=== PATIENT | female | born 1935 | race Caucasian/White ===

== ENCOUNTER 2016-10-26 07:17 | Inpatient (IN) | payer MEDICARE, OTHER ==
[2016-10-26] MEDS ORDERED: Sodium Chloride 0.9% 1,000 ML IV ONE (07:23)
[2016-10-26] MEDS ORDERED: Morphine 2 MG/ML Syringe IVPUSH ONE ×2 (07:23→09:41)
--- NOTE | 2016-10-26 07:39 | EDM.PDOC ---
ED HPI GENERAL MEDICAL PROBLEM - General Chief Complaint: Back Pain or Injury Stated Complaint: AMBULANCE Time Seen by Provider: 10/26/16 07:19 Source of Information: Reports: Patient - History of Present Illness INITIAL COMMENTS - FREE TEXT/NARRATIVE: HISTORY AND PHYSICAL: History of present illness: This is a 80-year-old female presenting to the emergency department via EMS after having a fall at home. She was found after having a fall out of her bed. She currently complains of lower back bilateral hip pain. Denies any loss of consciousness. He denies hitting her head. She denies any chest pain or shortness of breath. Denies any numbness or tingling. Has no other complaints. Review of systems: As per history of present illness and below otherwise all systems reviewed and negative. Past medical history: As per history of present illness and as reviewed below otherwise noncontributory. Surgical history: As per history of present illness and as reviewed below otherwise noncontributory. Social history: No reported history of drug or alcohol abuse. Family history: As per history of present illness and as reviewed below otherwise noncontributory. Physical exam: HEENT: Atraumatic, normocephalic, pupils reactive, negative for conjunctival pallor or scleral icterus, mucous membranes moist, throat clear, neck supple, nontender, trachea midline. Lungs: Clear to auscultation, breath sounds equal bilaterally, chest nontender. Heart: S1S2, regular, negative for clicks, rubs, or JVD. Abdomen: Soft, nondistended, nontender. Negative for masses or hepatosplenomegaly. Negative for costovertebral tenderness. Pelvis: Stable nontender. Genitourinary: Deferred. Rectal: Deferred. Extremities: Atraumatic, negative for cords or calf pain. Neurovascular unremarkable. Neuro: Awake, alert, oriented. Cranial nerves II through XII unremarkable. Cerebellum unremarkable. Motor and sensory unremarkable throughout. Exam nonfocal. Diagnostics: CBC CMP PT/INR TROPONIN CHEST XRAY Pelvic X-ray Lumber spine X-ray EKG UA CT pelvis w/o contrast Therapeutics: 2mg IV morphine Impression: Ambulatory dysfunction Plan: Admit to observation. Accepting physician Dr. Urena. Left Hip Pain Score (Numeric/FACES): 8 Lower Back Pain Score (Numeric/FACES): 8 - Related Data Allergies Allergy/AdvReac Type Severity Reaction Status Date / Time codeine Allergy Intermediate Rash Verified 03/25/16 06:33 celecoxib [From Celebrex] Allergy Rash Verified 03/25/16 06:33 propoxyphene [From Darvon] Allergy Rash Verified 10/26/16 07:46 Home Meds: Home Meds SitaGLIPtin [Januvia] 100 mg PO DAILY 11/24/15 [History] amLODIPine [Norvasc] 5 mg PO BEDTIME 11/24/15 [History] Ascorbic Acid [Vitamin C] 500 mg PO DAILY 03/25/16 [History] Calcium Carbonate/Vitamin D3 [Calcium 600 + Vit D Tablet] 1 tab PO DAILY [History] Metoprolol Succinate [Toprol XL] 25 mg PO DAILY 03/25/16 [History] Rosuvastatin [Crestor] 10 mg PO BEDTIME 03/25/16 [History] Fluticasone Propionate [Flonase Allergy Relief] 2 sprays NASBOTH DAILY 10/26/16 [History] Propylene Glycol/Peg 400 [Systane 0.3-0.4% Eye Drops] 1 drop EYEBOTH TID [History] Past Medical History Cardiovascular History: Reports: Hypertension Respiratory History: Reports: None Gastrointestinal History: Reports: None Neurological History: Reports: None Psychiatric History: Reports: None Endocrine/Metabolic History: Reports: Diabetes, Type II Hematologic History: Reports: None Other Oncologic History: as stated by the pt she has ca of the " pelvis, groin and chest" and she was ca free for 3 years now and that she is following up with her oncology dr. Dermatologic History: Reports: None - Infectious Disease History Infectious Disease History: Reports: None - Past Surgical History Musculoskeletal Surgical History: Reports: Knee Replacement Social & Family History - Tobacco Use Smoking Status *Q: Never Smoker Second Hand Smoke Exposure: No - Recreational Drug Use Recreational Drug Use: No ED ROS GENERAL - Review of Systems Review Of Systems: See Below (see dictation) ED EXAM,LOWER BACK PAIN/INJURY - Physical Exam Exam: See Below (See dictation) Course - Vital Signs Last Recorded V/S: Last Vital Signs Temp 37.2 C 10/27/16 04:00 Pulse 71 10/27/16 04:00 Resp 18 10/27/16 04:00 BP 127/58 L 10/27/16 04:00 Pulse Ox 94 L 10/27/16 04:00 - Orders/Labs/Meds Orders: Medication Orders Acetaminophen (Tylenol) 650 mg PO Q4H PRN PRN Reason: Pain (Mild 1-3)/fever Amlodipine Besylate (Norvasc) 5 mg PO BEDTIME [facility] Last Admin: 10/26/16 21:41 Dose: 5 mg Artificial Tears (Refresh Plus 0.5%) 0 each EYEBOTH TID [facility] Last Admin: 10/27/16 06:15 Dose: 1 drop Admin: 10/26/16 22:08 Dose: 1 drop Ascorbic Acid (Vitamin C) 500 mg PO DAILY [facility] Calcium Carbonate/Glycine (Tums) 500 mg PO DAILY [facility] Cholecalciferol (Vitamin D3) 400 units PO DAILY [facility] Enoxaparin Sodium (Lovenox) 30 mg SUBCUT DAILY [facility] Last Admin: 10/26/16 12:50 Dose: 30 mg Fluticasone Propionate (Flonase) 0 gm NASBOTH DAILY [facility] Insulin Aspart (Novolog) 0 unit SUBCUT TIDAC [facility] PRN Reason: Protocol Last Admin: 10/26/16 16:49 Dose: 1 unit Metoprolol Succinate (Toprol Xl) 25 mg PO DAILY [facility] Ondansetron HCl (Zofran Odt) 4 mg PO Q4H PRN PRN Reason: nausea, able to take PO Last Admin: 10/27/16 06:17 Dose: 4 mg Admin: 10/26/16 16:49 Dose: 4 mg Oxycodone HCl (Oxycodone) 10 mg PO Q4H PRN PRN Reason: Pain (moderate 4-6) Last Admin: 10/26/16 21:40 Dose: 10 mg Admin: 10/26/16 14:41 Dose: 10 mg Rosuvastatin Calcium (Crestor) 10 mg PO DAILY [facility] Sitagliptin Phosphate (Januvia) 100 mg PO DAILY [facility] Trimethoprim/Sulfamethoxazole (Septra Ds) 1 tab PO BID [facility] Last Admin: 10/26/16 21:41 Dose: 1 tab Admin: 10/26/16 12:50 Dose: 1 tab Labs: Laboratory Tests 10/26/16 10/26/16 10/26/16 Range/Units 07:39 07:39 07:39 WBC 8.98 (4.0-11.0) K/uL RBC 3.73 L (4.30-5.90) M/uL Hgb 12.1 (12.0-16.0) g/dL Hct 34.7 L (36.0-46.0) % MCV 93.0 (80.0-98.0) fL MCH 32.4 H (27.0-32.0) pg MCHC 34.9 (31.0-37.0) g/dL RDW Std Deviation 46.3 (28.0-62.0) fl RDW Coeff of Shell 14 (11.0-15.0) % Plt Count 120 L (150-400) K/uL MPV 10.60 (7.40-12.00) fL Neut % (Auto) 86.7 H (48.0-80.0) % Lymph % (Auto) 4.7 L (16.0-40.0) % [place] % (Auto) 8.5 (0.0-15.0) % Eos % (Auto) 0.0 (0.0-7.0) % Baso % (Auto) 0.1 (0.0-1.5) % Neut # (Auto) 7.8 H (1.4-5.7) K/uL Lymph # (Auto) 0.4 L (0.6-2.4) K/uL [place] # (Auto) 0.8 (0.0-0.8) K/uL Eos # (Auto) 0.0 (0.0-0.7) K/uL Baso # (Auto) 0.0 (0.0-0.1) K/uL Nucleated RBC % 0.0 /100WBC Nucleated RBCs # 0 K/uL INR (0.86-1.11) Sodium 140 (136-146) mmol/L Potassium 3.7 (3.5-5.1) mmol/L Chloride 104 (98-110) mmol/L Carbon Dioxide 23 (21-31) mmol/L BUN 25 H (6.0-23.0) mg/dL Creatinine 1.5 (0.6-1.5) mg/dL Est Cr Clr Drug Dosing 23.92 mL/min Estimated GFR (MDRD) 33.2 ml/min Glucose 200 H (60-110) mg/dL Calcium 10.0 (8.8-10.8) mg/dL Total Bilirubin 1.7 H (0.1-1.5) mg/dL AST 86 H (5-40) IU/L ALT 27 (8-54) IU/L Alkaline Phosphatase 98 (40-150) Troponin I < 0.10 (0.0-0.29) NG/ML Total Protein 7.4 (6.0-8.0) g/dL Albumin 4.0 (3.4-4.8) g/dL Globulin 3.4 (2.0-3.5) g/dL Albumin/Globulin Ratio 1.2 L (1.3-2.8) Urine Color Urine Appearance Urine pH (5.0-8.0) Ur Specific [place] (1.001-1.035) Urine Protein (NEGATIVE) mg/dL Urine Glucose (UA) (NEGATIVE) mg/dL Urine Ketones (NEGATIVE) mg/dL Urine Occult Blood (NEGATIVE) Urine Nitrite (NEGATIVE) Urine Bilirubin (NEGATIVE) Urine Urobilinogen (<2.0) EU/dL Ur Leukocyte Esterase (NEGATIVE) Urine RBC (0-2/HPF) Urine WBC (0-5/HPF) Ur Epithelial Cells (NONE-FEW) Urine Bacteria (NEGATIVE) 10/26/16 10/26/16 Range/Units 08:57 09:35 WBC (4.0-11.0) K/uL RBC (4.30-5.90) M/uL Hgb (12.0-16.0) g/dL Hct (36.0-46.0) % MCV (80.0-98.0) fL MCH (27.0-32.0) pg MCHC (31.0-37.0) g/dL RDW Std Deviation (28.0-62.0) fl RDW Coeff of Shell (11.0-15.0) % Plt Count (150-400) K/uL MPV (7.40-12.00) fL Neut % (Auto) (48.0-80.0) % Lymph % (Auto) (16.0-40.0) % [place] % (Auto) (0.0-15.0) % Eos % (Auto) (0.0-7.0) % Baso % (Auto) (0.0-1.5) % Neut # (Auto) (1.4-5.7) K/uL Lymph # (Auto) (0.6-2.4) K/uL [place] # (Auto) (0.0-0.8) K/uL Eos # (Auto) (0.0-0.7) K/uL Baso # (Auto) (0.0-0.1) K/uL Nucleated RBC % /100WBC Nucleated RBCs # K/uL INR 1.10 (0.86-1.11) Sodium (136-146) mmol/L Potassium (3.5-5.1) mmol/L Chloride (98-110) mmol/L Carbon Dioxide (21-31) mmol/L BUN (6.0-23.0) mg/dL Creatinine (0.6-1.5) mg/dL Est Cr Clr Drug Dosing mL/min Estimated GFR (MDRD) ml/min Glucose (60-110) mg/dL Calcium (8.8-10.8) mg/dL Total Bilirubin (0.1-1.5) mg/dL AST (5-40) IU/L ALT (8-54) IU/L Alkaline Phosphatase (40-150) Troponin I (0.0-0.29) NG/ML Total Protein (6.0-8.0) g/dL Albumin (3.4-4.8) g/dL Globulin (2.0-3.5) g/dL Albumin/Globulin Ratio (1.3-2.8) Urine Color YELLOW Urine Appearance CLEAR Urine pH 5.0 (5.0-8.0) Ur Specific [place] 1.025 (1.001-1.035) Urine Protein 100 (NEGATIVE) mg/dL Urine Glucose (UA) NEGATIVE (NEGATIVE) mg/dL Urine Ketones 15 H (NEGATIVE) mg/dL Urine Occult Blood LARGE H (NEGATIVE) Urine Nitrite NEGATIVE (NEGATIVE) Urine Bilirubin NEGATIVE (NEGATIVE) Urine Urobilinogen 1.0 (<2.0) EU/dL Ur Leukocyte Esterase LARGE (NEGATIVE) Urine RBC 2-3 (0-2/HPF) Urine WBC 45-50 (0-5/HPF) Ur Epithelial Cells MODERATE (NONE-FEW) Urine Bacteria 3+ H (NEGATIVE) Meds: Medications Generic Name Dose Route Start Last Admin Trade Name Freq PRN Reason Stop Dose Admin Acetaminophen 650 mg 10/26/16 12:18 Tylenol PO Q4H PRN Pain (Mild 1-3)/fever Amlodipine Besylate 5 mg 10/26/16 21:00 10/26/16 21:41 Norvasc PO 5 mg BEDTIME [facility] Administration Artificial Tears 0 each 10/26/16 22:00 10/27/16 06:15 Refresh Plus 0.5% EYEBOTH 1 drop TID [facility] Administration Ascorbic Acid 500 mg 10/27/16 09:00 Vitamin C PO DAILY [facility] Calcium Carbonate/Glycine 500 mg 10/27/16 09:00 Tums PO DAILY [facility] Cholecalciferol 400 units 10/27/16 09:00 Vitamin D3 PO DAILY [facility] Enoxaparin Sodium 30 mg 10/26/16 12:30 10/26/16 12:50 Lovenox SUBCUT 30 mg DAILY [facility] Administration Fluticasone Propionate 0 gm 10/27/16 09:00 Flonase NASBOTH DAILY [facility] Insulin Aspart 0 unit 10/26/16 17:00 10/26/16 16:49 Novolog SUBCUT 1 unit TIDAC [facility] Administration Protocol Metoprolol Succinate 25 mg 10/27/16 09:00 Toprol Xl PO DAILY [facility] Ondansetron HCl 4 mg 10/26/16 12:18 10/27/16 06:17 Zofran Odt PO 4 mg Q4H PRN Administration nausea, able to take PO Oxycodone HCl 10 mg 10/26/16 12:18 10/26/16 21:40 Oxycodone PO 10 mg Q4H PRN Administration Pain (moderate 4-6) Rosuvastatin Calcium 10 mg 10/27/16 09:00 Crestor PO DAILY [facility] Sitagliptin Phosphate 100 mg 10/27/16 09:00 Januvia PO DAILY [facility] Trimethoprim/Sulfamethoxazole 1 tab 10/26/16 12:30 10/26/16 21:41 Septra Ds PO 1 tab BID [facility] Administration Discontinued Medications Generic Name Dose Route Start Last Admin Trade Name Freq PRN Reason Stop Dose Admin Sodium Chloride 1,000 mls @ 999 mls/hr 10/26/16 07:23 10/26/16 09:04 Normal Saline IV 10/26/16 08:23 200 mls/hr STAT ONE Infusion Morphine Sulfate 2 mg 10/26/16 07:23 10/26/16 07:42 Morphine IVPUSH 10/26/16 07:24 2 mg ONETIME ONE Administration Morphine Sulfate 2 mg 10/26/16 09:41 10/26/16 09:47 Morphine IVPUSH 10/26/16 09:42 2 mg ONETIME ONE Administration Systane 0.3-0.4% Eye 1 each 10/26/16 22:00 Drops EYEBOTH TID [facility] Departure - Departure Time of Disposition: 11:59 Disposition: Refer to Observation Condition: Fair Clinical Impression: Ambulatory dysfunction - Discharge Information
--- NOTE | 2016-10-26 11:46 | CT ---
EXAMINATION: CT pelvis without contrast HISTORY: Fall COMPARISON: 05/11/2016 TECHNIQUE: Axial CT images obtained through the pelvis without contrast. Coronal and sagittal recons tructions obtained. FINDINGS: The osseous structures overall appear mildly osteopenic. No fracture or acute osseous abno rmality is noted. The SI joints are symmetric. The sacrum appears grossly intact. The iliopectineal lines are preserved. Joint spaces appear preserved. Mild to moderate osteophyte formation noted with in the hips. Hemangiomas are noted within the lower thoracic spine. Moderate facet hypertrophy also present at L4-L5 and L5-S1. Diverticulosis without evidence of diverticulitis. Otherwise the visualized intrapelvic structures a ppear grossly unremarkable. IMPRESSION: 1. Degenerative changes without acute findings. 2. Diverticulosis.
[2016-10-26] MEDS ORDERED: Enoxaparin 30 MG/0.3 ML Syringe SUBCUT SCH (12:30)
[2016-10-26] MEDS: Sulfamethoxazole/Trimethoprim 800-160 MG Tab PO SCH ×2 (12:50→21:41)
[2016-10-26] MEDS: oxyCODONE 5 MG Tab PO PRN ×2 (14:41→21:40)
--- NOTE | 2016-10-26 15:32 | PCM.HP ---
H&P History of Present Illness - General Date of Service: 10/26/16 Admit Problem/Dx: Admission Diagnosis/Problem Admission Diagnosis/Problem Ambulatory dysfunction Source of Information: Patient History Limitations: Reports: No Limitations - History of Present Illness Initial Comments - Free Text/Narative: 80-year-old female with a medical history of hypertension, type 2 diabetes that also has a pacemaker placed that is being admitted secondary to low back and left hip pain after suffering a fall this morning. Patient woke up early this morning with low back pain and was sitting on the edge of the bed and states that she slipped off the edge of the bed and fell onto her butt. Patient did not fall onto her hip and states that she only fell onto her butt. She did not lose consciousness and did not have any headache or dizziness prior to the fall. She states that with the fall she did bump her head against a bedside table but does not currently endorse any headache or dizziness. The fall was unwitnessed. She was able to get up and ambulate to the living room to get her walker which she usually only uses during the night when she needs to get up and go to the bathroom. Otherwise, she ambulates independently without assistive devices. Patient has never had any surgeries to her low back or hips. She rates her left hip and low back pain as 8 out of 10 at its worse. She does have increased weakness on the left lower side secondary to pain but denies any numbness or tingling. Patient does not have a history of seizures. She has no history of osteoporosis or osteopenia. Patient denies any chest pain, palpitations, shortness of breath, wheezing, cough, abdominal pain, nausea, vomiting, constipation, diarrhea, headache, dizziness, vision problems, tinnitus , fever. Patient does currently live on her own. ER course: Pelvic x-ray shows degenerative changes within the joint spaces bilaterally at the hips. No definite displaced fracture. Follow-up pelvic CT shows no fracture and only degenerative changes. Patient does have diverticulosis. Chest x-ray done in the emergency room shows no acute processes. Lumbar spine x-ray shows no fracture and normal anatomical alignment. There are bone spurs at disc spaces and hypertrophic changes of the lumbar facets. No significant listhesis present. CBC showed a normal white blood cell count with a platelet count of 120 ,000. BUN was mildly elevated at 25 with a normal creatinine. Urinalysis was negative for nitrites but did show +3 bacteria. Patient denies any discomfort with urination. Patient did receive morphine 2 while in the emergency room and also normal saline bolus. Left Hip Pain Score (Numeric/FACES): 9 Lower Back Pain Score (Numeric/FACES): 6 - Related Data Allergies/Adverse Reactions: Allergies Allergy/AdvReac Type Severity Reaction Status Date / Time codeine Allergy Intermediate Rash Verified 03/25/16 06:33 celecoxib [From Celebrex] Allergy Rash Verified 03/25/16 06:33 propoxyphene [From Darvon] Allergy Rash Verified 10/26/16 07:46 Home Medications: Home Meds SitaGLIPtin [Januvia] 100 mg PO DAILY 11/24/15 [History] amLODIPine [Norvasc] 5 mg PO BEDTIME 11/24/15 [History] Ascorbic Acid [Vitamin C] 500 mg PO DAILY 03/25/16 [History] Calcium Carbonate/Vitamin D3 [Calcium 600 + Vit D Tablet] 1 tab PO DAILY [History] Metoprolol Succinate [Toprol XL] 25 mg PO DAILY 03/25/16 [History] Rosuvastatin [Crestor] 10 mg PO BEDTIME 03/25/16 [History] Fluticasone Propionate [Flonase Allergy Relief] 2 sprays NASBOTH DAILY 10/26/16 [History] Propylene Glycol/Peg 400 [Systane 0.3-0.4% Eye Drops] 1 drop EYEBOTH TID [History] Past Medical History Cardiovascular History: Reports: Hypertension Respiratory History: Reports: None Other Respiratory History: Hx of pneumonia Gastrointestinal History: Reports: None Neurological History: Reports: None Psychiatric History: Reports: None Endocrine/Metabolic History: Reports: Diabetes, Type II Hematologic History: Reports: None Other Oncologic History: as stated by the pt she has ca of the " pelvis, groin and chest" and she was ca free for 3 years now and that she is following up with her oncology dr. Dermatologic History: Reports: None - Infectious Disease History Infectious Disease History: Reports: None - Past Surgical History HEENT Surgical History: Reports: Eye Surgery Other HEENT Surgeries/Procedures: Wears glasses Cardiovascular Surgical History: Reports: Pacer Female Surgical History: Reports: Hysterectomy Musculoskeletal Surgical History: Reports: Knee Replacement Social & Family History - Family History Family Medical History: Noncontributory Cardiac: Reports: Hypertension, [place] GI: Reports: Other (See Below) Other GI Family History: Intestinal CA Endocrine/Metabolic: Reports: Diabetes, type II - Tobacco Use Smoking Status *Q: Never Smoker Second Hand Smoke Exposure: No - Caffeine Use Caffeine Use: Reports: None - Recreational Drug Use Recreational Drug Use: No H&P Review of Systems - Review of Systems: Review Of Systems: See Below General: Reports: No Symptoms HEENT: Reports: No Symptoms Pulmonary: Reports: No Symptoms Cardiovascular: Reports: No Symptoms Gastrointestinal: Reports: No Symptoms Genitourinary: Reports: No Symptoms Musculoskeletal: Reports: Other (Left hip pain with low back pain.) Skin: Reports: No Symptoms Psychiatric: Reports: No Symptoms Neurological: Reports: No Symptoms Hematologic/Lymphatic: Reports: No Symptoms Immunologic: Reports: No Symptoms Exam - Exam Exam: See Below - Vital Signs Vital Signs: Last Vital Signs Temp 98.5 F 10/26/16 12:07 Pulse 76 10/26/16 12:07 Resp 18 10/26/16 12:07 BP 141/65 H 10/26/16 12:07 Pulse Ox 94 L 10/26/16 12:07 Weight: 179 lb 7.3 oz - Exam Quality Assessment: DVT Prophylaxis (SCDs, Lovenox.) General: Alert, Oriented, Cooperative HEENT: Conjunctiva Clear, EOMI, Hearing Intact, Mucosa Moist & [place] Neck: Supple, Trachea Midline, 2 Lungs: Clear to Auscultation, Normal Respiratory Effort Cardiovascular: Regular Rate, Regular Rhythm GI/Abdominal Exam: Normal Bowel Sounds, Soft, Non-Tender, No Organomegaly, No Distention, No Abnormal Bruit, No Mass Extremities: Other (Pain with palpation over the left greater trochanter of the left hip. Patient also has pain with palpation of the low back. Strength is 4 out of 5 in the left lower extremity secondary to pain. No bruising, erythema or redness noted to the left hip. There is no shortening of the left lower extremity and the foot is not turned outward. No calf tenderness with palpation bilaterally.) Peripheral Pulses: 2+: Radial (L), Radial (R), Posterior Tibial (L), Posterior Tibial (R) Skin: Warm, Dry, Intact Neuro Extensive - Mental Status: Alert, Oriented x3, Normal Mood/Affect, Normal Cognition Neuro Extensive - Motor, Sensory, Reflexes: CN II-XII Intact, Other (Sensation remains intact light touch in the upper and lower extremities bilaterally.) Psychiatric: Alert, Normal Affect, Normal Mood - Patient Data Result Diagrams: 10/26/16 07:39 10/26/16 07:39 *Q Meaningful Use (ADM) - VTE *Q VTE Criteria *Q: - Stroke *Q Stroke Criteria *Q: - AMI *Q AMI Criteria *Q: - Problem List (1) Left hip pain SNOMED Code(s): 59038501 ICD Code: M25.552 - PAIN IN LEFT HIP Status: Acute Current Visit: Yes (2) UTI (urinary tract infection) SNOMED Code(s): 45125971 ICD Code: N39.0 - URINARY TRACT INFECTION, SITE NOT SPECIFIED Status: Acute Current Visit: Yes Problem List Initiated/Reviewed/Updated: Yes Orders Last 24hrs: Active Orders 24 hr Category Date Time Status Antiembolic Devices [RC] PER UNIT ROUTINE Care 10/26/16 12:20 Active Height and Weight [RC] DAILY Care 10/26/16 12:18 Active Intake and Output [RC] Q12H Care 10/26/16 12:19 Active Notify Provider Vital Signs [RC] ASDIRECTED Care 10/26/16 12:19 Active Oxygen Therapy [RC] PRN Care 10/26/16 12:19 Active Pulse Oximetry [RC] PRN Care 10/26/16 12:19 Active Up With Assistance [RC] ASDIRECTED Care 10/26/16 12:18 Active VTE/DVT Education [RC] PER UNIT ROUTINE Care 10/26/16 12:19 Active Vital Signs [RC] Q4H Care 10/26/16 12:19 Active PT Evaluation and Treatment [CONS] Routine Cons 10/26/16 12:18 Active Heart Healthy Diet [DIET] Diet 10/26/16 Dinner Active Acetaminophen [Tylenol] Med 10/26/16 12:18 Active 650 mg PO Q4H PRN Ascorbic Acid [Vitamin C] Med 10/27/16 09:00 Active 500 mg PO DAILY Calcium Carbonate [Tums] Med 10/27/16 09:00 Active 500 mg PO DAILY Cholecalciferol (Vitamin D3) [Vitamin D3] Med 10/27/16 09:00 Active 400 units PO DAILY Enoxaparin [Lovenox] Med 10/26/16 12:30 Active 30 mg SUBCUT DAILY Fluticasone Propionate [Flonase] Med 10/27/16 09:00 Active 0 gm NASBOTH DAILY Insulin Aspart [NovoLOG] Med 10/26/16 17:00 Active See Protocol SUBCUT TIDAC Metoprolol Succinate [Toprol XL] Med 10/27/16 09:00 Active 25 mg PO DAILY Ondansetron [Zofran ODT] Med 10/26/16 12:18 Active 4 mg PO Q4H PRN Patient's Own Medication [Ptom] Med 10/26/16 22:00 Active 1 each EYEBOTH TID Rosuvastatin [Crestor] Med 10/27/16 09:00 Active 10 mg PO DAILY SitaGLIPtin [Januvia] Med 10/27/16 09:00 Active 100 mg PO DAILY Sulfamethoxazole/Trimethoprim [Septra DS] Med 10/26/16 12:30 Active 1 tab PO BID amLODIPine [Norvasc] Med 10/26/16 21:00 Active 5 mg PO BEDTIME oxyCODONE Med 10/26/16 12:18 Active 10 mg PO Q4H PRN Sequential Compression Device [OM.PC] Per Unit Routine Oth 10/26/16 12:19 Ordered Resuscitation Status Routine Resus Stat 10/26/16 12:18 Ordered Medication Orders Acetaminophen (Tylenol) 650 mg PO Q4H PRN PRN Reason: Pain (Mild 1-3)/fever Amlodipine Besylate (Norvasc) 5 mg PO BEDTIME [facility] Ascorbic Acid (Vitamin C) 500 mg PO DAILY [facility] Calcium Carbonate/Glycine (Tums) 500 mg PO DAILY [facility] Cholecalciferol (Vitamin D3) 400 units PO DAILY [facility] Enoxaparin Sodium (Lovenox) 30 mg SUBCUT DAILY [facility] Last Admin: 10/26/16 12:50 Dose: 30 mg Fluticasone Propionate (Flonase) 0 gm NASBOTH DAILY [facility] Insulin Aspart (Novolog) 0 unit SUBCUT TIDAC [facility] PRN Reason: Protocol Metoprolol Succinate (Toprol Xl) 25 mg PO DAILY [facility] Ondansetron HCl (Zofran Odt) 4 mg PO Q4H PRN PRN Reason: nausea, able to take PO Oxycodone HCl (Oxycodone) 10 mg PO Q4H PRN PRN Reason: Pain (moderate 4-6) Last Admin: 10/26/16 14:41 Dose: 10 mg Systane 0.3-0.4% Eye (Drops) 1 each EYEBOTH TID [facility] Rosuvastatin Calcium (Crestor) 10 mg PO DAILY [facility] Sitagliptin Phosphate (Januvia) 100 mg PO DAILY [facility] Trimethoprim/Sulfamethoxazole (Septra Ds) 1 tab PO BID DARR[facility] Last Admin: 10/26/16 12:50 Dose: 1 tab Assessment/Plan Comment:: 80-year-old female being admitted with low back and left hip pain after suffering an unwitnessed fall. Patient also has a UTI. #1. Low back/left hip pain: -Pelvic x-rays and lumbar x-rays were unremarkable for fracture. Follow-up pelvic CT showed no evidence of fracture and only diverticulosis. -PT has been ordered. Oral Pain medications are available as needed for pain relief. #2. UTI: -urinalysis shows +3 bacteria and negative nitrates. patient does not have any symptoms with urination. -Patient placed on oral Bactrim double strength twice a day. #3. Type 2 diabetes: -patient will continue with home medication of Januvia. We will check her blood sugars throughout the day. -Patient placed on sliding scale NovoLog. All home medications have been restarted. DVT prophylaxis: SCDs, Lovenox. Discharge: 1-2 days pending improvement
[2016-10-26] MEDS: Insulin Aspart 100 Units/ML 3 ML Pen SUBCUT SCH (16:49)
[2016-10-26] MEDS: Ondansetron 4 MG Tab.DIS PO PRN (16:49)
--- NOTE | 2016-10-26 17:17 | CR ---
EXAM DATE: 10/26/16 PATIENT'S AGE: 80 Patient: ABDIRAHMAN BARTLETT Facility: [place], [place] Site . Site : 1935 Study: XRay Pelvis [id number]/21/2017 8:27:11 AM Ordering Physician: Jose David Couch Final Report: INDICATION: Fall. Technique: Pelvis and right hip. Impression.: An overlying backboard is present. There is asymmetric linear density projecting over the intertrochanteric region of the right femur. The medial margin of this extends beyond the cortex also this could represent a superimposition. The position and alignment appear normal. No definite displaced fracture. Both hip joints show degeneration with joint space narrowing and marginal osteophytic spurring. Small surgical clips are present at the pelvis. Suggest repeat exam when the patient is off of the backboard with additional views of the right hip. Dictated by Jeffrey Carmichael MD @ Oct 26 2016 8:27AM (Electronic Signature) Report Signed by Proxy. MONY
--- NOTE | 2016-10-26 17:18 | CR ---
EXAM DATE: 10/26/16 PATIENT'S AGE: 80 Patient: ABDIRAHMAN BARTLETT Facility: [place], [place] Site . Site : 1935 Study: XRay Chest [id number]/21/2017 8:27:40 AM Ordering Physician: Jose David Couch Final Report: INDICATION: Fall. Technique: Portable chest. March 2016 comparison. Impression: Right Port-A-Cath with central line in the superior vena cava. Left-sided pacemaker generator. Right atrial and ventricular pacemaker leads are present. The lungs are clear. No pneumothorax. The tracheal air column is slightly deviated to the right at the thoracic inlet. This is unchanged. Correlate with physical exam. Benign causes could include enlargement of the left thyroid lobe but correlate with clinical findings. No effusions or pneumothorax. Dictated by Jeffrey Carmichael MD @ Oct 26 2016 8:30AM (Electronic Signature) Report Signed by Proxy. MONY
--- NOTE | 2016-10-26 17:19 | CR ---
EXAM DATE: 10/26/16 PATIENT'S AGE: 80 Patient: ABDIRAHMAN BARTLETT Facility: [place], [place] Site . Site : 1935 Study: XRay Spine Lumbar [id number]/21/2017 8:28:47 AM Ordering Physician: Jose David Couch Final Report: Lumbar spine 3 VIEWS INDICATION: Injury. IMPRESSION: No visualized fracture. Alignments anatomic. Overlying backboard is present. The lumbar spine shows multilevel annular spurring at the disc spaces and hypertrophic changes in the lumbar facet joints. No significant listhesis. Dictated by Jeffrey Carmichael MD @ Oct 26 2016 8:33AM (Electronic Signature) Report Signed by Proxy. MONY
[2016-10-26] MEDS: amLODIPine 5 MG Tab PO SCH (21:41)
[2016-10-26] MEDS ORDERED: Systane 0.3-0.4% Eye Drops EYEBOTH SCH (22:00)
[2016-10-26] MEDS: Carboxymethylcellulose Sodium 0.5% Ophth Soln 0.4 ML UD Box of 30 EYEBOTH SCH (22:08)
[2016-10-27] MEDS: Carboxymethylcellulose Sodium 0.5% Ophth Soln 0.4 ML UD Box of 30 EYEBOTH SCH ×3 (06:15→21:16)
[2016-10-27] MEDS: Ondansetron 4 MG Tab.DIS PO PRN ×2 (06:17→21:50)
[2016-10-27] MEDS: Insulin Aspart 100 Units/ML 3 ML Pen SUBCUT SCH ×3 (07:38→19:05)
[2016-10-27] MEDS: Calcium Carbonate 500 MG Tab.Chew PO SCH (09:03)
[2016-10-27] MEDS: Cholecalciferol (Vitamin D3) 400 Unit Tab PO SCH (09:03)
[2016-10-27] MEDS: Sulfamethoxazole/Trimethoprim 800-160 MG Tab PO SCH (09:04)
[2016-10-27] MEDS: Fluticasone Propionate Nasal Spray 16 GM Bottle NASBOTH SCH (09:04)
[2016-10-27] MEDS: Metoprolol Succinate 25 MG Tab.ER PO SCH (09:04)
[2016-10-27] MEDS: Ascorbic Acid 500 MG Tab PO SCH (09:04)
[2016-10-27] MEDS: Rosuvastatin 10 MG Tab PO SCH (09:04)
--- NOTE | 2016-10-27 09:09 | PCM.PN ---
- General Info Date of Service: 10/27/16 Admission Dx/Problem (Free Text): Admission Diagnosis/Problem Admission Diagnosis/Problem Ambulatory dysfunction Subjective Update: Feeling kind of blah today, feels slightly nauseated and dizzy. She is mostly dizzy when she stands up. Denies chest pain or SOB. No Palpitations. Pain to L hip improved, she is able to ambulate with assistance and a walker. Functional Status: Reports: Pain Controlled, Tolerating Diet, Ambulating, Urinating - Review of Systems General: Reports: Malaise. Denies: Fever HEENT: Reports: No Symptoms. Denies: Eye Pain, Headaches, Sore Throat, Rhinitis Pulmonary: Reports: No Symptoms. Denies: Shortness of Breath, Cough, Sputum Cardiovascular: Reports: Lightheadedness. Denies: Chest Pain Gastrointestinal: Reports: Abdominal Pain, Nausea, Vomiting Genitourinary: Reports: No Symptoms. Denies: Dysuria, Frequency, Burning Musculoskeletal: Reports: Joint Pain (L hip, but improved with medication) Neurological: Reports: Dizziness Psychiatric: Reports: No Symptoms - Patient Data Vitals - Most Recent: Last Vital Signs Temp 98.3 F 10/27/16 08:00 Pulse 75 10/27/16 08:00 Resp 20 10/27/16 08:00 BP 123/56 L 10/27/16 08:00 Pulse Ox 93 L 10/27/16 08:00 Weight - Most Recent: 81.4 kg I&O - Last 24 Hours: Intake & Output 10/26/16 10/27/16 10/27/16 22:59 06:59 14:59 Intake Total 1300 150 Output Total 1 400 Balance 1299 -250 Lab Results Last 24 Hours: Laboratory Results - last 24 hr 10/26/16 10/26/16 10/27/16 Range/Units 16:17 21:04 04:50 WBC 6.92 (4.0-11.0) K/uL RBC 3.03 L (4.30-5.90) M/uL Hgb 9.6 L (12.0-16.0) g/dL Hct 28.5 L (36.0-46.0) % MCV 94.1 (80.0-98.0) fL MCH 31.7 (27.0-32.0) pg MCHC 33.7 (31.0-37.0) g/dL RDW Std Deviation 47.4 (28.0-62.0) fl RDW Coeff of Shell 14 (11.0-15.0) % Plt Count 118 L (150-400) K/uL MPV 10.40 (7.40-12.00) fL Neut % (Auto) 83.9 H (48.0-80.0) % Lymph % (Auto) 6.8 L (16.0-40.0) % [place] % (Auto) 9.1 (0.0-15.0) % Eos % (Auto) 0.1 (0.0-7.0) % Baso % (Auto) 0.1 (0.0-1.5) % Neut # (Auto) 5.8 H (1.4-5.7) K/uL Lymph # (Auto) 0.5 L (0.6-2.4) K/uL [place] # (Auto) 0.6 (0.0-0.8) K/uL Eos # (Auto) 0.0 (0.0-0.7) K/uL Baso # (Auto) 0.0 (0.0-0.1) K/uL Nucleated RBC % 0.0 /100WBC Nucleated RBCs # 0 K/uL Absolute Retic (20-80) K/uL Percent Retic (0.5-1.5) % Immature Retic Fraction % Sodium (136-146) mmol/L Potassium (3.5-5.1) mmol/L Chloride (98-110) mmol/L Carbon Dioxide (21-31) mmol/L BUN (6.0-23.0) mg/dL Creatinine (0.6-1.5) mg/dL Est Cr Clr Drug Dosing mL/min Estimated GFR (MDRD) ml/min Glucose (60-110) mg/dL POC Glucose 158 H 162 H (60-110) mg/dL Calcium (8.8-10.8) mg/dL Iron (50-170) ug/dL TIBC (273-456) ug/dL % Saturation (20-55) % Transferrin (200-400) ug/dL 10/27/16 10/27/16 10/27/16 Range/Units 04:50 04:55 04:55 WBC (4.0-11.0) K/uL RBC 3.01 L (4.30-5.90) M/uL Hgb (12.0-16.0) g/dL Hct (36.0-46.0) % MCV (80.0-98.0) fL MCH (27.0-32.0) pg MCHC (31.0-37.0) g/dL RDW Std Deviation (28.0-62.0) fl RDW Coeff of Shell (11.0-15.0) % Plt Count (150-400) K/uL MPV (7.40-12.00) fL Neut % (Auto) (48.0-80.0) % Lymph % (Auto) (16.0-40.0) % [place] % (Auto) (0.0-15.0) % Eos % (Auto) (0.0-7.0) % Baso % (Auto) (0.0-1.5) % Neut # (Auto) (1.4-5.7) K/uL Lymph # (Auto) (0.6-2.4) K/uL [place] # (Auto) (0.0-0.8) K/uL Eos # (Auto) (0.0-0.7) K/uL Baso # (Auto) (0.0-0.1) K/uL Nucleated RBC % /100WBC Nucleated RBCs # K/uL Absolute Retic 57.80 (20-80) K/uL Percent Retic 1.9 H (0.5-1.5) % Immature Retic Fraction 10 % Sodium 138 (136-146) mmol/L Potassium 3.6 (3.5-5.1) mmol/L Chloride 105 (98-110) mmol/L Carbon Dioxide 23 (21-31) mmol/L BUN 25 H (6.0-23.0) mg/dL Creatinine 1.2 (0.6-1.5) mg/dL Est Cr Clr Drug Dosing 31.21 mL/min Estimated GFR (MDRD) 43.0 ml/min Glucose 128 H (60-110) mg/dL POC Glucose (60-110) mg/dL Calcium 8.8 (8.8-10.8) mg/dL Iron 19 L (50-170) ug/dL TIBC 197 L (273-456) ug/dL % Saturation 9.64 L (20-55) % Transferrin 138 L (200-400) ug/dL Med Orders - Current: Current Medications Acetaminophen (Tylenol) 650 mg PO Q4H PRN PRN Reason: Pain (Mild 1-3)/fever Amlodipine Besylate (Norvasc) 5 mg PO BEDTIME [facility] Last Admin: 10/26/16 21:41 Dose: 5 mg Artificial Tears (Refresh Plus 0.5%) 0 each EYEBOTH TID [facility] Last Admin: 10/27/16 06:15 Dose: 1 drop Ascorbic Acid (Vitamin C) 500 mg PO DAILY [facility] Calcium Carbonate/Glycine (Tums) 500 mg PO DAILY [facility] Cholecalciferol (Vitamin D3) 400 units PO DAILY [facility] Fluticasone Propionate (Flonase) 0 gm NASBOTH DAILY [facility] Insulin Aspart (Novolog) 0 unit SUBCUT TIDAC [facility] PRN Reason: Protocol Last Admin: 10/27/16 07:38 Dose: Not Given Metoprolol Succinate (Toprol Xl) 25 mg PO DAILY [facility] Ondansetron HCl (Zofran Odt) 4 mg PO Q4H PRN PRN Reason: nausea, able to take PO Last Admin: 10/27/16 06:17 Dose: 4 mg Oxycodone HCl (Oxycodone) 5 mg PO Q4H PRN PRN Reason: Pain (moderate 4-6) Rosuvastatin Calcium (Crestor) 10 mg PO DAILY [facility] Sitagliptin Phosphate (Januvia) 100 mg PO DAILY [facility] Trimethoprim/Sulfamethoxazole (Septra Ds) 1 tab PO BID [facility] Last Admin: 10/26/16 21:41 Dose: 1 tab Discontinued Medications Enoxaparin Sodium (Lovenox) 30 mg SUBCUT DAILY [facility] Last Admin: 10/26/16 12:50 Dose: 30 mg Sodium Chloride (Normal Saline) 1,000 mls @ 999 mls/hr IV STAT ONE Stop: 10/26/16 08:23 Last Infusion: 10/26/16 09:04 Dose: 200 mls/hr Morphine Sulfate (Morphine) 2 mg IVPUSH ONETIME ONE Stop: 10/26/16 07:24 Last Admin: 10/26/16 07:42 Dose: 2 mg Morphine Sulfate (Morphine) 2 mg IVPUSH ONETIME ONE Stop: 10/26/16 09:42 Last Admin: 10/26/16 09:47 Dose: 2 mg Oxycodone HCl (Oxycodone) 10 mg PO Q4H PRN PRN Reason: Pain (moderate 4-6) Last Admin: 10/26/16 21:40 Dose: 10 mg Systane 0.3-0.4% Eye (Drops) 1 each EYEBOTH TID DARRICK - Exam General: Alert, Oriented, Cooperative, No Acute Distress HEENT: Pupils Equal Neck: Supple, No JVD Lungs: Clear to Auscultation, Normal Respiratory Effort Cardiovascular: Regular Rate, Regular Rhythm GI/Abdominal Exam: Normal Bowel Sounds, Soft, No Organomegaly, No Distention, No Mass, Guarding (LLQ), Tender (LLQ) Extremities: Normal Inspection, Normal Range of Motion, Non-Tender, No Pedal Edema, Normal Capillary Refill Skin: Other (pale in appearance.) Neurological: No New Focal Deficit Psy/Mental Status: Alert, Normal Affect, Normal Mood - Problem List & Annotations (1) Abdominal pain SNOMED Code(s): 57493163 Code(s): R10.9 - UNSPECIFIED ABDOMINAL PAIN Status: Acute Current Visit: Yes (2) Ambulatory dysfunction SNOMED Code(s): 810523017 Code(s): R26.2 - DIFFICULTY IN WALKING, NOT ELSEWHERE CLASSIFIED Status: Acute Current Visit: Yes (3) Left hip pain SNOMED Code(s): 63749780 Code(s): M25.552 - PAIN IN LEFT HIP Status: Acute Current Visit: Yes (4) UTI (urinary tract infection) SNOMED Code(s): 47442779 Code(s): N39.0 - URINARY TRACT INFECTION, SITE NOT SPECIFIED Status: Acute Current Visit: Yes (5) DM type 2 (diabetes mellitus, type 2) SNOMED Code(s): 08866584 Code(s): E11.9 - TYPE 2 DIABETES MELLITUS WITHOUT COMPLICATIONS Status: Chronic Current Visit: Yes Qualifiers: Diabetes mellitus complication status: without complication Diabetes mellitus care home insulin use: without care home use Qualified Code(s): E11.9 - Type 2 diabetes mellitus without complications (6) HTN (hypertension) SNOMED Code(s): 27950980 Code(s): I10 - ESSENTIAL (PRIMARY) HYPERTENSION Status: Acute Current Visit: Yes Qualifiers: Hypertension type: essential hypertension Qualified Code(s): I10 - Essential (primary) hypertension (7) Anemia SNOMED Code(s): 320734918 Code(s): D64.9 - ANEMIA, UNSPECIFIED Status: Acute Current Visit: Yes Qualifiers: Anemia type: iron deficiency Iron deficiency anemia type: other iron deficiency Qualified Code(s): D50.8 - Other iron deficiency anemias - Problem List Review Problem List Initiated/Reviewed/Updated: Yes - My Orders Last 24 Hours: My Active Orders 10/27/16 04:55 FERRITIN [REF] Routine FOLIC ACID [CHEM] Routine VITAMIN B12 [CHEM] Routine 10/27/16 08:06 CULTURE URINE [RM] Routine 10/27/16 08:27 Fecal Occult Blood Collection [RC] ASDIRECTED OCCULT BLOOD DIAGNOSTIC [OP] Routine 10/27/16 08:56 Orthostatic Vital Signs [RC] Q12HR 10/27/16 08:57 oxyCODONE 5 mg PO Q4H PRN - Plan Plan:: 80-year-old female being admitted with low back and left hip pain after suffering an unwitnessed fall. Patient also has a UTI. 1. Low back/left hip pain: Continue with PT. Oral Pain medications are available as needed for pain relief. Pain has improved, she is able to ambulate with walker. 2. UTI: UC pending. Continues to have no symptoms. 3. Type 2 diabetes: Continue with home medication of Januvia. Check her blood sugars TIDAC. Continue SSI, NovoLog. BS controlled. 4. Anemia: Hgb dropped to 9.6 today, Plt 118,000. She denies any bleeding, does have some LLQ tenderness/pain with palpation. Will obtain Abd/pelvis CT, iron studies and obtain hemoccult. C/O dizziness with getting up, obtain Orthostatic VS. 5. HTN: Continue Norvasc, Metoprolol. 6. Abdominal pain: Will obtain Abdominal/pelvis CT. nauseated and just does not feel well. Pelvic CT yesterday noted diverticulosis, question possible diverticulitis now due to new LLQ tenderness. Will stop Bactrim and start Flagyl and Cipro IV. Change to CL diet and monitor. 7. Hypoxia: Does not complain of this, but appears dyspneic with speech and Hypoxic on RA. Will obtain PA/LAT CXR, BNP, and ECHO. DVT prophylaxis: SCDs, DC Lovenox due to drop in hgb and work up for anemia Discharge: 1-2 days pending improvement Discussed patient in detail with Dr. Noble and Dr. Urena, all in agreement with current treatment plan.
[2016-10-27] MEDS ORDERED: Ciprofloxacin in D5W 400 MG in Premix Bag 1 BAG IV SCH ×2 (11:00)
--- NOTE | 2016-10-27 11:22 | CT ---
CT of the abdomen and pelvis without contrast. HISTORY: Left lower quadrant pain TECHNIQUE: Axial CT images were obtained of the abdomen and pelvis without contrast. Coronal and sag ittal reconstructions obtained. Comparison: 05/11/2016. FINDINGS: There is atelectasis within the lung bases. The liver, spleen, and pancreas appear unremarkable for noncontrast examination. The gallbladder chang ears normal. There is mild nodular thickening of the adrenal glands bilaterally, grossly unchanged. There is no bulky retroperitoneal lymphadenopathy. No abdominal ascites. There are no calcifications noted within the kidneys or along the courses of the ureters bilaterally . There is mild to moderate left perirenal stranding. The large and small bowel are normal in caliber without evidence of obstruction. The appendix appear s normal. Diverticulosis without evidence of diverticulitis. There is no bulky pelvic lymphadenopath y. No free fluid. No free air. The urinary bladder appears normal. The visualized osseous structures appear osteopenic. Hemangiomas noted within the lower lumbar spine , unchanged. IMPRESSION: 1. Left perirenal stranding, this could represent a recently passed stone versus an underlying UTI. 2. Diverticulosis without evidence of diverticulitis.
[2016-10-27] MEDS ORDERED: metroNIDAZOLE/Normal Saline 500 MG in Premix Bag 1 BAG IV SCH (12:00)
--- NOTE | 2016-10-27 12:12 | PCM.SN ---
- Free Text/Narrative Note: Abd/pelvis noted perirenal stranding to L, likely cause of abdominal pain. No outward signs of passing a stone. Likely due to UTI. Will stop Cipro and Flagyl since she has not received these yet and place on Rocephin IV until sensitivities available from culture.
--- NOTE | 2016-10-27 12:34 | CR ---
EXAMINATION: Two-view chest (PA and Lateral views). HISTORY: Shortness of breath. FINDINGS: The trachea is midline. The cardiomediastinal silhouette is within normal limits. Mild left basilar atelectasis and/or infiltrate, trace pleural effusion is not excluded. Right-sided portacatheter is noted. Left-sided ICD also present. Osseous structures appear unremarkable. IMPRESSION: Mild left basilar atelectasis and/or infiltrate.
[2016-10-27] MEDS: cefTRIAXone 1 GM in Premix Bag 1 BAG IV SCH (13:12)
[2016-10-27] MEDS: Acetaminophen 325 MG Tab PO PRN ×2 (13:12→21:08)
[2016-10-27] MEDS ORDERED: Azithromycin 250 MG Tab PO ONE (17:00)
[2016-10-27] MEDS: amLODIPine 5 MG Tab PO SCH (21:08)
[2016-10-27] MEDS: oxyCODONE 5 MG Tab PO PRN (22:07)
[2016-10-28] MEDS: Carboxymethylcellulose Sodium 0.5% Ophth Soln 0.4 ML UD Box of 30 EYEBOTH SCH ×3 (06:17→21:13)
[2016-10-28] MEDS: Insulin Aspart 100 Units/ML 3 ML Pen SUBCUT SCH ×3 (06:36→16:45)
[2016-10-28] MEDS: Metoprolol Succinate 25 MG Tab.ER PO SCH (08:57)
[2016-10-28] MEDS: Cholecalciferol (Vitamin D3) 400 Unit Tab PO SCH (08:58)
[2016-10-28] MEDS: Ascorbic Acid 500 MG Tab PO SCH (08:58)
[2016-10-28] MEDS: Calcium Carbonate 500 MG Tab.Chew PO SCH (08:59)
[2016-10-28] MEDS: Rosuvastatin 10 MG Tab PO SCH (08:59)
[2016-10-28] MEDS: Fluticasone Propionate Nasal Spray 16 GM Bottle NASBOTH SCH (09:00)
[2016-10-28] MEDS ORDERED: Magnesium Hydroxide 400 MG/5 ML Susp 30 ML Cup PO ONE (09:18)
[2016-10-28] MEDS: Iron Polysaccharides Complex 150 MG Cap PO SCH (09:36)
--- NOTE | 2016-10-28 10:04 | PCM.PN ---
- General Info Date of Service: 10/28/16 Admission Dx/Problem (Free Text): Admission Diagnosis/Problem Admission Diagnosis/Problem UTI, CAP, fall Subjective Update: Sitting up in chair afte eating breakfast, appears very well this morning. She reports she is feeling much better today, some pain to L SI joint region, no bruising noted. Some pain to L hip when ambulating but this too has improved. No further abdominal pain, feeling bloated and constipated though. Denies nausea today. No chest pain or SOB, still requiring 1 L NC oxygen. Functional Status: Reports: Pain Controlled, Tolerating Diet, Ambulating, Urinating - Review of Systems General: Reports: No Symptoms. Denies: Fever HEENT: Reports: No Symptoms. Denies: Ear Pain, Headaches, Sore Throat, Visual Changes Pulmonary: Reports: No Symptoms. Denies: Shortness of Breath, Cough, Sputum Cardiovascular: Reports: No Symptoms. Denies: Chest Pain, Palpitations, Lightheadedness Gastrointestinal: Reports: Constipation. Denies: Abdominal Pain, Nausea, Vomiting Genitourinary: Reports: No Symptoms. Denies: Dysuria, Frequency, Burning Musculoskeletal: Reports: Joint Pain (L hip and L SI joint region) Skin: Reports: No Symptoms Neurological: Reports: No Symptoms Psychiatric: Reports: No Symptoms - Patient Data Vitals - Most Recent: Last Vital Signs Temp 97.6 F 10/28/16 08:00 Pulse 67 10/28/16 08:57 Resp 16 10/28/16 08:00 BP 114/53 L 10/28/16 08:57 Pulse Ox 95 10/28/16 08:00 Orthostatic Blood Pressure [ 129/60 Standing] Orthostatic Blood Pressure [ 115/57 Sitting] Orthostatic Blood Pressure [ 127/59 Supine] Weight - Most Recent: 81.4 kg I&O - Last 24 Hours: Intake & Output 10/27/16 10/28/16 10/28/16 22:59 06:59 14:59 Intake Total 500 368 Output Total 320 400 Balance 180 -32 Lab Results Last 24 Hours: Laboratory Results - last 24 hr 10/27/16 10/27/16 10/27/16 Range/Units 12:55 13:17 16:36 WBC (4.0-11.0) K/uL RBC (4.30-5.90) M/uL Hgb 10.3 L (12.0-16.0) g/dL Hct 29.8 L (36.0-46.0) % MCV (80.0-98.0) fL MCH (27.0-32.0) pg MCHC (31.0-37.0) g/dL RDW Std Deviation (28.0-62.0) fl RDW Coeff of Hsell (11.0-15.0) % Plt Count (150-400) K/uL MPV (7.40-12.00) fL Neut % (Auto) (48.0-80.0) % Lymph % (Auto) (16.0-40.0) % [place] % (Auto) (0.0-15.0) % Eos % (Auto) (0.0-7.0) % Baso % (Auto) (0.0-1.5) % Neut # (Auto) (1.4-5.7) K/uL Lymph # (Auto) (0.6-2.4) K/uL [place] # (Auto) (0.0-0.8) K/uL Eos # (Auto) (0.0-0.7) K/uL Baso # (Auto) (0.0-0.1) K/uL Nucleated RBC % /100WBC Nucleated RBCs # K/uL Sodium (136-146) mmol/L Potassium (3.5-5.1) mmol/L Chloride (98-110) mmol/L Carbon Dioxide (21-31) mmol/L BUN (6.0-23.0) mg/dL Creatinine (0.6-1.5) mg/dL Est Cr Clr Drug Dosing mL/min Estimated GFR (MDRD) ml/min Glucose (60-110) mg/dL POC Glucose 124 H 157 H (60-110) mg/dL Calcium (8.8-10.8) mg/dL 10/28/16 10/28/16 Range/Units 05:03 05:03 WBC 5.96 (4.0-11.0) K/uL RBC 3.07 L (4.30-5.90) M/uL Hgb 9.6 L (12.0-16.0) g/dL Hct 28.7 L (36.0-46.0) % MCV 93.5 (80.0-98.0) fL MCH 31.3 (27.0-32.0) pg MCHC 33.4 (31.0-37.0) g/dL RDW Std Deviation 47.0 (28.0-62.0) fl RDW Coeff of Shell 14 (11.0-15.0) % Plt Count 119 L (150-400) K/uL MPV 10.70 (7.40-12.00) fL Neut % (Auto) 80.1 H (48.0-80.0) % Lymph % (Auto) 8.6 L (16.0-40.0) % [place] % (Auto) 10.6 (0.0-15.0) % Eos % (Auto) 0.5 (0.0-7.0) % Baso % (Auto) 0.2 (0.0-1.5) % Neut # (Auto) 4.8 (1.4-5.7) K/uL Lymph # (Auto) 0.5 L (0.6-2.4) K/uL [place] # (Auto) 0.6 (0.0-0.8) K/uL Eos # (Auto) 0.0 (0.0-0.7) K/uL Baso # (Auto) 0.0 (0.0-0.1) K/uL Nucleated RBC % 0.0 /100WBC Nucleated RBCs # 0 K/uL Sodium 140 (136-146) mmol/L Potassium 4.2 (3.5-5.1) mmol/L Chloride 106 (98-110) mmol/L Carbon Dioxide 25 (21-31) mmol/L BUN 26 H (6.0-23.0) mg/dL Creatinine 1.1 (0.6-1.5) mg/dL Est Cr Clr Drug Dosing 34.05 mL/min Estimated GFR (MDRD) 47.6 ml/min Glucose 113 H (60-110) mg/dL POC Glucose (60-110) mg/dL Calcium 9.1 (8.8-10.8) mg/dL Med Orders - Current: Current Medications Acetaminophen (Tylenol) 650 mg PO Q4H PRN PRN Reason: Pain (Mild 1-3)/fever Last Admin: 10/27/16 21:08 Dose: 650 mg Amlodipine Besylate (Norvasc) 5 mg PO BEDTIME [facility] Last Admin: 10/27/16 21:08 Dose: 5 mg Artificial Tears (Refresh Plus 0.5%) 0 each EYEBOTH TID [facility] Last Admin: 10/28/16 06:17 Dose: 1 drop Ascorbic Acid (Vitamin C) 500 mg PO DAILY [facility] Last Admin: 10/28/16 08:58 Dose: 500 mg Azithromycin (Zithromax) 250 mg PO Q24H [facility] Calcium Carbonate/Glycine (Tums) 500 mg PO DAILY [facility] Last Admin: 10/28/16 08:59 Dose: 500 mg Cholecalciferol (Vitamin D3) 400 units PO DAILY [facility] Last Admin: 10/28/16 08:58 Dose: 400 units Fluticasone Propionate (Flonase) 0 gm NASBOTH DAILY [facility] Last Admin: 10/28/16 09:00 Dose: 1 spray Ceftriaxone Sodium/Dextrose 1 (gm/ Premix) 50 mls @ 100 mls/hr IV Q24H [facility] Last Admin: 10/27/16 13:12 Dose: 100 mls/hr Insulin Aspart (Novolog) 0 unit SUBCUT TIDAC [facility] PRN Reason: Protocol Last Admin: 10/28/16 06:36 Dose: Not Given Metoprolol Succinate (Toprol Xl) 25 mg PO DAILY [facility] Last Admin: 10/28/16 08:57 Dose: 25 mg Ondansetron HCl (Zofran Odt) 4 mg PO Q4H PRN PRN Reason: nausea, able to take PO Last Admin: 10/27/16 21:50 Dose: 4 mg Oxycodone HCl (Oxycodone) 5 mg PO Q4H PRN PRN Reason: Pain (moderate 4-6) Last Admin: 10/27/16 22:07 Dose: 5 mg Polysaccharide Iron Complex (Ferrex 150) 150 mg PO DAILY [facility] Last Admin: 10/28/16 09:36 Dose: 150 mg Rosuvastatin Calcium (Crestor) 10 mg PO DAILY [facility] Last Admin: 10/28/16 08:59 Dose: 10 mg Sitagliptin Phosphate (Januvia) 100 mg PO DAILY [facility] Last Admin: 10/28/16 09:36 Dose: 100 mg Discontinued Medications Azithromycin (Zithromax) 500 mg PO Q24H ONE Stop: 10/27/16 17:01 Last Admin: 10/27/16 16:37 Dose: 500 mg Enoxaparin Sodium (Lovenox) 30 mg SUBCUT DAILY [facility] Last Admin: 10/26/16 12:50 Dose: 30 mg Sodium Chloride (Normal Saline) 1,000 mls @ 999 mls/hr IV STAT ONE Stop: 10/26/16 08:23 Last Infusion: 10/26/16 09:04 Dose: 200 mls/hr Ciprofloxacin/Dextrose 400 mg/ (Premix) 200 mls @ 200 mls/hr IV Q12H [facility] Last Admin: 10/27/16 13:01 Dose: Not Given Metronidazole 500 mg/ Premix 100 mls @ 100 mls/hr IV QID [facility] Last Admin: 10/27/16 13:00 Dose: Not Given Magnesium Hydroxide (Milk Of Magnesia) 30 ml PO ONETIME ONE Stop: 10/28/16 09:19 Last Admin: 10/28/16 09:36 Dose: 30 ml Morphine Sulfate (Morphine) 2 mg IVPUSH ONETIME ONE Stop: 10/26/16 07:24 Last Admin: 10/26/16 07:42 Dose: 2 mg Morphine Sulfate (Morphine) 2 mg IVPUSH ONETIME ONE Stop: 10/26/16 09:42 Last Admin: 10/26/16 09:47 Dose: 2 mg Oxycodone HCl (Oxycodone) 10 mg PO Q4H PRN PRN Reason: Pain (moderate 4-6) Last Admin: 10/26/16 21:40 Dose: 10 mg Systane 0.3-0.4% Eye (Drops) 1 each EYEBOTH TID [facility] Trimethoprim/Sulfamethoxazole (Septra Ds) 1 tab PO BID [facility] Last Admin: 10/27/16 09:04 Dose: 1 tab - Exam General: Alert, Oriented, Cooperative, No Acute Distress Neck: Supple Lungs: Clear to Auscultation, Normal Respiratory Effort Cardiovascular: Regular Rate, Regular Rhythm, No Murmurs GI/Abdominal Exam: Normal Bowel Sounds, Soft, Non-Tender, No Organomegaly, No Distention, No Abnormal Bruit Back Exam: Normal Inspection, Full Range of Motion, Other (tenderness noted over L SI joint, no bruising noted, ). No: Paraspinal Tenderness, Vertebral Tenderness Extremities: Normal Inspection, Normal Range of Motion, Non-Tender, No Pedal Edema, Normal Capillary Refill Neurological: No New Focal Deficit - Problem List & Annotations (1) Abdominal pain SNOMED Code(s): 74091495 Code(s): R10.9 - UNSPECIFIED ABDOMINAL PAIN Status: Acute Current Visit: Yes (2) Ambulatory dysfunction SNOMED Code(s): 658395234 Code(s): R26.2 - DIFFICULTY IN WALKING, NOT ELSEWHERE CLASSIFIED Status: Acute Current Visit: Yes (3) Left hip pain SNOMED Code(s): 87496313 Code(s): M25.552 - PAIN IN LEFT HIP Status: Acute Current Visit: Yes (4) UTI (urinary tract infection) SNOMED Code(s): 38146181 Code(s): N39.0 - URINARY TRACT INFECTION, SITE NOT SPECIFIED Status: Acute Current Visit: Yes (5) DM type 2 (diabetes mellitus, type 2) SNOMED Code(s): 11813371 Code(s): E11.9 - TYPE 2 DIABETES MELLITUS WITHOUT COMPLICATIONS Status: Chronic Current Visit: Yes Qualifiers: Diabetes mellitus complication status: without complication Diabetes mellitus long term care phlebotomist insulin use: without long term care phlebotomist use Qualified Code(s): E11.9 - Type 2 diabetes mellitus without complications (6) HTN (hypertension) SNOMED Code(s): 51941501 Code(s): I10 - ESSENTIAL (PRIMARY) HYPERTENSION Status: Acute Current Visit: Yes Qualifiers: Hypertension type: essential hypertension Qualified Code(s): I10 - Essential (primary) hypertension (7) Anemia SNOMED Code(s): 624432008 Code(s): D64.9 - ANEMIA, UNSPECIFIED Status: Acute Current Visit: Yes Qualifiers: Anemia type: iron deficiency Iron deficiency anemia type: other iron deficiency Qualified Code(s): D50.8 - Other iron deficiency anemias - Problem List Review Problem List Initiated/Reviewed/Updated: Yes - My Orders Last 24 Hours: My Active Orders 10/27/16 13:00 cefTRIAXone [Rocephin in Dextrose,Iso-Osm 1 GM/50 ML] 1 gm Premix Bag 1 bag IV Q24H 10/27/16 19:28 Hemoccult [OCCULT BLOOD DIAGNOSTIC] [OP] Routine 10/28/16 09:30 Iron Polysaccharides Complex [Ferrex 150] 150 mg PO DAILY 10/28/16 12:00 Azithromycin [Zithromax] 250 mg PO Q24H - Plan Plan:: 80-year-old female being admitted with low back and left hip pain after suffering an unwitnessed fall. Patient also has a UTI. 1. Low back/left hip pain: Continues to improve, continue with PT. Oral Pain medications are available as needed for pain relief. Pain has improved, she is able to ambulate with walker. 2. UTI: UC pending. Continues to have no symptoms. Continue with Rocephin IV. 3. Type 2 diabetes: Stable. Continue with home medication of Januvia. Check her blood sugars TIDAC. Continue SSI, NovoLog. 4. Anemia: Hgb 9.6 this am, hemoccult pending. , Plt 118,000. Orthostatic VS negative. Iron studies show iron deficiency anemia, will start PO Iron, peripheral smear shows thrombocytopenia and lymphopenia, may be acute reaction to illness vs primary bone marrow disorder, will have her follow with PCP regarding this. 5. HTN: Continue Norvasc, Metoprolol. 6. Abdominal pain: Abd CT revealed some perirenal stranding on L, Continue with Rocephin for UTI, no signs of passing stone. Likely due to UTI. No further pain today. 7. Hypoxia: Continues to feel ok, no SOB. Appears less dyspneic today. ECHO revealed LVEF 60-65 with some impaired relaxation of LV diastolic filling, mild aortic valve regurg, mild miltral valve regurg, and tricuspid regurgitation. Hypoxia likely secondary to mild CAP, Azithromycin added with Rocephin. Continue to wean off O2 today. DVT prophylaxis: SCDs Discharge: 1-2 days pending improvement
[2016-10-28] MEDS: oxyCODONE 5 MG Tab PO PRN (11:00)
[2016-10-28] MEDS ORDERED: Azithromycin 250 MG Tab PO SCH (12:00)
[2016-10-28] MEDS: cefTRIAXone 1 GM in Premix Bag 1 BAG IV SCH (12:58)
[2016-10-28] MEDS: amLODIPine 5 MG Tab PO SCH (21:12)
[2016-10-29] MEDS ORDERED: Bisacodyl 10 MG Supp ONE (08:11)
[2016-10-29] MEDS: Carboxymethylcellulose Sodium 0.5% Ophth Soln 0.4 ML UD Box of 30 EYEBOTH SCH ×2 (08:23→13:58)
[2016-10-29] MEDS: Insulin Aspart 100 Units/ML 3 ML Pen SUBCUT SCH ×2 (08:24→11:58)
[2016-10-29] MEDS: Iron Polysaccharides Complex 150 MG Cap PO SCH (08:41)
[2016-10-29] MEDS: Ascorbic Acid 500 MG Tab PO SCH (08:41)
[2016-10-29] MEDS: Metoprolol Succinate 25 MG Tab.ER PO SCH (08:42)
[2016-10-29] MEDS: Rosuvastatin 10 MG Tab PO SCH (08:43)
[2016-10-29] MEDS: oxyCODONE 5 MG Tab PO PRN (08:44)
[2016-10-29] MEDS: Cholecalciferol (Vitamin D3) 400 Unit Tab PO SCH (08:46)
[2016-10-29] MEDS: Calcium Carbonate 500 MG Tab.Chew PO SCH (08:46)
[2016-10-29] MEDS: Fluticasone Propionate Nasal Spray 16 GM Bottle NASBOTH SCH (08:47)
[2016-10-29] MEDS ORDERED: Bisacodyl 10 MG Supp RECTAL ONE (09:30)
[2016-10-29] MEDS ORDERED: Cefdinir 300 MG Cap PO SCH (10:15)
[2016-10-29 11:21] VITALS: BP 119/57
--- NOTE | 2016-10-29 11:28 | PCM.DCSUM1 ---
Discharge Summary - Hospital Course Brief History: This 80 year old female with a pmh of HTN, type 2 diabetes that also has a pacemaker placed that is being admitted secondary to low back and left hip pain after suffering a fall the morning of 10/27/2016. Patient woke up early that morning with low back pain and was sitting on the edge of the bed and states that she slipped off the edge of the bed and fell onto her butt. Patient did not fall onto her hip and states that she only fell onto her butt. She did not lose consciousness and did not have any headache or dizziness prior to the fall. She states that with the fall she did bump her head against a bedside table but does not currently endorse any headache or dizziness. The fall was unwitnessed. She was able to get up and ambulate to the living room to get her walker which she usually only uses during the night when she needs to get up and go to the bathroom. Otherwise, she ambulates independently without assistive devices. Patient has never had any surgeries to her low back or hips. She rates her left hip and low back pain as 8 out of 10 at its worse. She does have increased weakness on the left lower side secondary to pain but denies any numbness or tingling. Patient does not have a history of seizures. She has no history of osteoporosis or osteopenia. Patient denies any chest pain, palpitations, shortness of breath, wheezing, cough, abdominal pain, nausea, vomiting, constipation, diarrhea, headache, dizziness, vision problems, tinnitus , fever. Patient does currently live on her own. In the ED, Pelvic x-ray shows degenerative changes within the joint spaces bilaterally at the hips. No definite displaced fracture. Follow-up pelvic CT shows no fracture and only degenerative changes. Patient does have diverticulosis. Chest x-ray done in the emergency room shows no acute processes. Lumbar spine x-ray shows no fracture and normal anatomical alignment. There are bone spurs at disc spaces and hypertrophic changes of the lumbar facets. CBC showed a normal white blood cell count with a platelet count of 120,000. BUN was mildly elevated at 25 with a normal creatinine. Urinalysis was negative for nitrites but did show +3 bacteria. Patient denies any discomfort with urination. Patient did receive morphine 2 while in the emergency room and also normal saline bolus. - Discharge Data Discharge Date: 10/29/16 Discharge Disposition: Home, W Home Health Agency 06 Condition: Good - Discharge Diagnosis/Problem(s) (1) UTI (urinary tract infection) SNOMED Code(s): 98892198 ICD Code: N39.0 - URINARY TRACT INFECTION, SITE NOT SPECIFIED Status: Acute Current Visit: Yes (2) Community acquired pneumonia SNOMED Code(s): 116994971 ICD Code: J18.9 - PNEUMONIA, UNSPECIFIED ORGANISM Status: Acute Current Visit: Yes (3) Ambulatory dysfunction SNOMED Code(s): 618755197 ICD Code: R26.2 - DIFFICULTY IN WALKING, NOT ELSEWHERE CLASSIFIED Status: Acute Current Visit: Yes (4) Left hip pain SNOMED Code(s): 75852805 ICD Code: M25.552 - PAIN IN LEFT HIP Status: Acute Current Visit: Yes (5) DM type 2 (diabetes mellitus, type 2) SNOMED Code(s): 77669785 ICD Code: E11.9 - TYPE 2 DIABETES MELLITUS WITHOUT COMPLICATIONS Status: Chronic Current Visit: Yes Qualifiers: Diabetes mellitus complication status: without complication Diabetes mellitus evp chief exploration officer insulin use: without evp chief exploration officer use Qualified Code(s): E11.9 - Type 2 diabetes mellitus without complications (6) HTN (hypertension) SNOMED Code(s): 66840428 ICD Code: I10 - ESSENTIAL (PRIMARY) HYPERTENSION Status: Acute Current Visit: Yes Qualifiers: Hypertension type: essential hypertension Qualified Code(s): I10 - Essential (primary) hypertension (7) Anemia SNOMED Code(s): 280957684 ICD Code: D64.9 - ANEMIA, UNSPECIFIED Status: Acute Current Visit: Yes Qualifiers: Anemia type: iron deficiency Iron deficiency anemia type: other iron deficiency Qualified Code(s): D50.8 - Other iron deficiency anemias (8) Abdominal pain SNOMED Code(s): 20064186 ICD Code: R10.9 - UNSPECIFIED ABDOMINAL PAIN Status: Resolved Current Visit: Yes - Patient Instructions Diet: Heart Healthy Diet, Diabetic Diet Activity: As Tolerated Showering/Bathing: May Shower Notify Provider of: Fever, Increased Pain, Swelling and Redness, Drainage, Nausea and/or Vomiting - Discharge Plan Prescriptions/Med Rec: Acetaminophen [Tylenol Extra Strength] 1,000 mg PO Q8H PRN #60 tablet PRN Reason: Pain Cefdinir [IJD: Cefdinir] 300 mg PO BID #10 capsule Iron Polysaccharides Complex [Ferrex 150] 150 mg PO DAILY #30 cap oxyCODONE 5 mg PO Q6H PRN #15 tablet PRN Reason: Pain Home Medications: Home Meds SitaGLIPtin [Januvia] 100 mg PO DAILY 11/24/15 [History] amLODIPine [Norvasc] 5 mg PO BEDTIME 11/24/15 [History] Ascorbic Acid [Vitamin C] 500 mg PO DAILY 03/25/16 [History] Calcium Carbonate/Vitamin D3 [Calcium 600 + Vit D Tablet] 1 tab PO DAILY [History] Metoprolol Succinate [Toprol XL] 25 mg PO DAILY 03/25/16 [History] Rosuvastatin [Crestor] 10 mg PO BEDTIME 03/25/16 [History] Fluticasone Propionate [Flonase Allergy Relief] 2 sprays NASBOTH DAILY 10/26/16 [History] Propylene Glycol/Peg 400 [Systane 0.3-0.4% Eye Drops] 1 drop EYEBOTH TID [History] Acetaminophen [Tylenol Extra Strength] 1,000 mg PO Q8H PRN #60 tablet 10/29/16 [ Rx] Cefdinir [IJD: Cefdinir] 300 mg PO BID #10 capsule 10/29/16 [Rx] Iron Polysaccharides Complex [Ferrex 150] 150 mg PO DAILY #30 cap 10/29/16 [Rx] oxyCODONE 5 mg PO Q6H PRN #15 tablet 10/29/16 [Rx] Patient Handouts: Oxycodone tablets or capsules, Polysaccharide-Iron Complex tablets or capsules, Urinary Tract Infection, Adult, [id number], Acetaminophen tablets or caplets Referrals: [facility] [Outside] Cal Garcia MD [Primary Care Provider] - 11/03/16 10:45 am - Discharge Summary/Plan Comment DC Time >30 min.: No Discharge Summary/Plan Comment: Discharge Diagnoses: UTI CAP Back pain, arthritis Fall HTN Pacemaker DM Type 2 Armida was admitted and treated with Bactrim initially for UTI. On Day 2, she felt blah, was very nauseated and was now requiring oxygen, 2 L NC. She was also having some LLQ abdominal pain. Abdominal/pelvis CT obtained which shower sergo-renal stranding, likey due to UTI. She then was worked up for hypoxia, PA/ Lat chest xray showed L lower base atelectasis vs infiltrate. She was then started on Rocephin and Azithromycin for CAP and UTI. She then continued to improve over the next couple days. Pain continued to low back and L hip but was improving and she was able to ambulate with walker. Today she continues to be improved. UC revealed mixed jimmy 10,000-100,000, no further abdominal pain and she is tolerating diet well. She was weaned off oxygen. She will be discharged home today, she will be going to stay with her daughter for awhile for extra support. She will be discharged with Home Health as well. She is in need of skilled care for new medication and recent hospitalization. She is also in need of PT/OT evaluation and treatment due to gait instability and generalized weakness. OT evaluation would be beneficial to complete a home assessment since she does live alone. She is homebound due to the inability to drive, the need for walker due to unstable gait, deconditioning due to fall and recent hospitalization. Dr. Cal Garcia is aware of admission and will follow with plan of care. She is to return to clinic for follow up as arranged. She is to return to ED or clinic if concerns should arise. - General Info Date of Service: 10/29/16 Admission Dx/Problem (Free Text: Admission Diagnosis/Problem Admission Diagnosis/Problem UTI, CAP, fall Subjective Update: Doing well this morning, sitting up in the chair, still complaining of some constipation. Denies SOB or Chest pain. No further abdominal pain. Functional Status: Reports: Pain Controlled, Tolerating Diet, Ambulating, Urinating - Review of Systems General: Reports: No Symptoms HEENT: Reports: No Symptoms. Denies: Contact Lenses, Ear Pain, Sore Throat Pulmonary: Reports: No Symptoms. Denies: Shortness of Breath, Cough, Sputum, Hemoptysis Cardiovascular: Reports: No Symptoms. Denies: Chest Pain, Dyspnea on Exertion, Edema Gastrointestinal: Reports: No Symptoms. Denies: Abdominal Pain, Nausea, Vomiting Genitourinary: Reports: No Symptoms. Denies: Dysuria, Frequency, Burning Musculoskeletal: Reports: Back Pain (low back and L SI joint region. ) Skin: Reports: No Symptoms Neurological: Reports: No Symptoms Psychiatric: Reports: No Symptoms - Patient Data Vitals - Most Recent: Last Vital Signs Temp 97.2 F 10/29/16 11:17 Pulse 60 10/29/16 11:17 Resp 20 10/29/16 11:17 BP 119/57 L 10/29/16 11:17 Pulse Ox 96 10/29/16 07:00 Orthostatic Blood Pressure [ 113/53 Standing] Orthostatic Blood Pressure [ 117/59 Sitting] Orthostatic Blood Pressure [ 134/62 Supine] Weight - Most Recent: 81.4 kg I&O - Last 24 hours: Intake & Output 10/28/16 10/29/16 10/29/16 22:59 06:59 14:59 Intake Total 270 240 Output Total 500 Balance -230 240 Lab Results - Last 24 hrs: Laboratory Results - last 24 hr 10/27/16 10/28/16 10/28/16 Range/Units 20:35 06:13 11:29 WBC (4.0-11.0) K/uL RBC (4.30-5.90) M/uL Hgb (12.0-16.0) g/dL Hct (36.0-46.0) % MCV (80.0-98.0) fL MCH (27.0-32.0) pg MCHC (31.0-37.0) g/dL RDW Std Deviation (28.0-62.0) fl RDW Coeff of Shell (11.0-15.0) % Plt Count (150-400) K/uL MPV (7.40-12.00) fL Neut % (Auto) (48.0-80.0) % Lymph % (Auto) (16.0-40.0) % [place] % (Auto) (0.0-15.0) % Eos % (Auto) (0.0-7.0) % Baso % (Auto) (0.0-1.5) % Neut # (Auto) (1.4-5.7) K/uL Lymph # (Auto) (0.6-2.4) K/uL [place] # (Auto) (0.0-0.8) K/uL Eos # (Auto) (0.0-0.7) K/uL Baso # (Auto) (0.0-0.1) K/uL Nucleated RBC % /100WBC Nucleated RBCs # K/uL Sodium (136-146) mmol/L Potassium (3.5-5.1) mmol/L Chloride (98-110) mmol/L Carbon Dioxide (21-31) mmol/L BUN (6.0-23.0) mg/dL Creatinine (0.6-1.5) mg/dL Est Cr Clr Drug Dosing mL/min Estimated GFR (MDRD) ml/min Glucose (60-110) mg/dL POC Glucose 122 H 112 H 114 H (60-110) mg/dL Calcium (8.8-10.8) mg/dL 10/28/16 10/28/16 10/29/16 Range/Units 16:42 23:02 04:55 WBC 6.03 (4.0-11.0) K/uL RBC 2.96 L (4.30-5.90) M/uL Hgb 9.4 L (12.0-16.0) g/dL Hct 27.8 L (36.0-46.0) % MCV 93.9 (80.0-98.0) fL MCH 31.8 (27.0-32.0) pg MCHC 33.8 (31.0-37.0) g/dL RDW Std Deviation 48.1 (28.0-62.0) fl RDW Coeff of Shell 14 (11.0-15.0) % Plt Count 133 L (150-400) K/uL MPV 10.60 (7.40-12.00) fL Neut % (Auto) 78.2 (48.0-80.0) % Lymph % (Auto) 9.0 L (16.0-40.0) % [place] % (Auto) 11.3 (0.0-15.0) % Eos % (Auto) 1.2 (0.0-7.0) % Baso % (Auto) 0.3 (0.0-1.5) % Neut # (Auto) 4.7 (1.4-5.7) K/uL Lymph # (Auto) 0.5 L (0.6-2.4) K/uL [place] # (Auto) 0.7 (0.0-0.8) K/uL Eos # (Auto) 0.1 (0.0-0.7) K/uL Baso # (Auto) 0.0 (0.0-0.1) K/uL Nucleated RBC % 0.0 /100WBC Nucleated RBCs # 0 K/uL Sodium (136-146) mmol/L Potassium (3.5-5.1) mmol/L Chloride (98-110) mmol/L Carbon Dioxide (21-31) mmol/L BUN (6.0-23.0) mg/dL Creatinine (0.6-1.5) mg/dL Est Cr Clr Drug Dosing mL/min Estimated GFR (MDRD) ml/min Glucose (60-110) mg/dL POC Glucose 110 117 H (60-110) mg/dL Calcium (8.8-10.8) mg/dL 10/29/16 Range/Units 05:00 WBC (4.0-11.0) K/uL RBC (4.30-5.90) M/uL Hgb (12.0-16.0) g/dL Hct (36.0-46.0) % MCV (80.0-98.0) fL MCH (27.0-32.0) pg MCHC (31.0-37.0) g/dL RDW Std Deviation (28.0-62.0) fl RDW Coeff of Shell (11.0-15.0) % Plt Count (150-400) K/uL MPV (7.40-12.00) fL Neut % (Auto) (48.0-80.0) % Lymph % (Auto) (16.0-40.0) % [place] % (Auto) (0.0-15.0) % Eos % (Auto) (0.0-7.0) % Baso % (Auto) (0.0-1.5) % Neut # (Auto) (1.4-5.7) K/uL Lymph # (Auto) (0.6-2.4) K/uL [place] # (Auto) (0.0-0.8) K/uL Eos # (Auto) (0.0-0.7) K/uL Baso # (Auto) (0.0-0.1) K/uL Nucleated RBC % /100WBC Nucleated RBCs # K/uL Sodium 139 (136-146) mmol/L Potassium 4.3 (3.5-5.1) mmol/L Chloride 104 (98-110) mmol/L Carbon Dioxide 26 (21-31) mmol/L BUN 26 H (6.0-23.0) mg/dL Creatinine 1.0 (0.6-1.5) mg/dL Est Cr Clr Drug Dosing 37.73 mL/min Estimated GFR (MDRD) 53.1 ml/min Glucose 128 H (60-110) mg/dL POC Glucose (60-110) mg/dL Calcium 8.9 (8.8-10.8) mg/dL HARISH Results - Last 24 hrs: Microbiology 10/27/16 16:52 Urine Culture - Final Urine, Clean Catch MIXED JIMMY 10,000-100,000 CFU/ML Med Orders - Current: Current Medications Acetaminophen (Tylenol) 650 mg PO Q4H PRN PRN Reason: Pain (Mild 1-3)/fever Last Admin: 10/27/16 21:08 Dose: 650 mg Amlodipine Besylate (Norvasc) 5 mg PO BEDTIME COUNT INCLUDES THE [facility] Last Admin: 10/28/16 21:12 Dose: 5 mg Artificial Tears (Refresh Plus 0.5%) 0 each EYEBOTH TID COUNT INCLUDES THE [facility] Last Admin: 10/29/16 08:23 Dose: Not Given Ascorbic Acid (Vitamin C) 500 mg PO DAILY COUNT INCLUDES THE [facility] Last Admin: 10/29/16 08:41 Dose: 500 mg Calcium Carbonate/Glycine (Tums) 500 mg PO DAILY COUNT INCLUDES THE [facility] Last Admin: 10/29/16 08:46 Dose: 500 mg Cefdinir (Omnicef) 300 mg PO BID COUNT INCLUDES THE [facility] Last Admin: 10/29/16 10:52 Dose: 300 mg Cholecalciferol (Vitamin D3) 400 units PO DAILY COUNT INCLUDES THE [facility] Last Admin: 10/29/16 08:46 Dose: 400 units Fluticasone Propionate (Flonase) 0 gm NASBOTH DAILY COUNT INCLUDES THE [facility] Last Admin: 10/29/16 08:47 Dose: 2 spray Insulin Aspart (Novolog) 0 unit SUBCUT TIDAC COUNT INCLUDES THE [facility] PRN Reason: Protocol Last Admin: 10/29/16 08:24 Dose: Not Given Metoprolol Succinate (Toprol Xl) 25 mg PO DAILY COUNT INCLUDES THE [facility] Last Admin: 10/29/16 08:42 Dose: 25 mg Ondansetron HCl (Zofran Odt) 4 mg PO Q4H PRN PRN Reason: nausea, able to take PO Last Admin: 10/27/16 21:50 Dose: 4 mg Oxycodone HCl (Oxycodone) 5 mg PO Q4H PRN PRN Reason: Pain (moderate 4-6) Last Admin: 10/29/16 08:44 Dose: 5 mg Polysaccharide Iron Complex (Ferrex 150) 150 mg PO DAILY COUNT INCLUDES THE [facility] Last Admin: 10/29/16 08:41 Dose: 150 mg Rosuvastatin Calcium (Crestor) 10 mg PO DAILY COUNT INCLUDES THE [facility] Last Admin: 10/29/16 08:43 Dose: 10 mg Sitagliptin Phosphate (Januvia) 100 mg PO DAILY COUNT INCLUDES THE [facility] Last Admin: 10/29/16 08:41 Dose: 100 mg Discontinued Medications Azithromycin (Zithromax) 500 mg PO Q24H ONE Stop: 10/27/16 17:01 Last Admin: 10/27/16 16:37 Dose: 500 mg Azithromycin (Zithromax) 250 mg PO Q24H COUNT INCLUDES THE [facility] Last Admin: 10/28/16 12:12 Dose: 250 mg Bisacodyl (Dulcolax) 10 mg .ROUTE .STK-MED ONE Stop: 10/29/16 08:12 Bisacodyl (Dulcolax) 10 mg RECTAL ONETIME ONE Stop: 10/29/16 09:31 Last Admin: 10/29/16 09:19 Dose: 10 mg Enoxaparin Sodium (Lovenox) 30 mg SUBCUT DAILY COUNT INCLUDES THE [facility] Last Admin: 10/26/16 12:50 Dose: 30 mg Sodium Chloride (Normal Saline) 1,000 mls @ 999 mls/hr IV STAT ONE Stop: 10/26/16 08:23 Last Infusion: 10/26/16 09:04 Dose: 200 mls/hr Ciprofloxacin/Dextrose 400 mg/ (Premix) 200 mls @ 200 mls/hr IV Q12H COUNT INCLUDES THE [facility] Last Admin: 10/27/16 13:01 Dose: Not Given Metronidazole 500 mg/ Premix 100 mls @ 100 mls/hr IV QID COUNT INCLUDES THE [facility] Last Admin: 10/27/16 13:00 Dose: Not Given Ceftriaxone Sodium/Dextrose 1 (gm/ Premix) 50 mls @ 100 mls/hr IV Q24H COUNT INCLUDES THE [facility] Last Admin: 10/28/16 12:58 Dose: 100 mls/hr Magnesium Hydroxide (Milk Of Magnesia) 30 ml PO ONETIME ONE Stop: 10/28/16 09:19 Last Admin: 10/28/16 09:36 Dose: 30 ml Morphine Sulfate (Morphine) 2 mg IVPUSH ONETIME ONE Stop: 10/26/16 07:24 Last Admin: 10/26/16 07:42 Dose: 2 mg Morphine Sulfate (Morphine) 2 mg IVPUSH ONETIME ONE Stop: 10/26/16 09:42 Last Admin: 10/26/16 09:47 Dose: 2 mg Oxycodone HCl (Oxycodone) 10 mg PO Q4H PRN PRN Reason: Pain (moderate 4-6) Last Admin: 10/26/16 21:40 Dose: 10 mg Systane 0.3-0.4% Eye (Drops) 1 each EYEBOTH TID COUNT INCLUDES THE [facility] Trimethoprim/Sulfamethoxazole (Septra Ds) 1 tab PO BID DARRICK Last Admin: 10/27/16 09:04 Dose: 1 tab - Exam Quality Assessment: Denies: Supplemental Oxygen General: Reports: Alert, Oriented, Cooperative, No Acute Distress HEENT: Reports: Pupils Equal, Pupils Reactive, EOMI, Mucous Membr. Moist/[place] Neck: Reports: Supple, No JVD Lungs: Reports: Clear to Auscultation, Normal Respiratory Effort Cardiovascular: Reports: Regular Rate, Regular Rhythm, No Murmurs GI/Abdominal Exam: Normal Bowel Sounds, Soft, Non-Tender, No Organomegaly, No Distention, No Abnormal Bruit, No Mass, Pelvis Stable Extremities: Normal Inspection, Normal Range of Motion, Non-Tender, Pedal Edema (trace) Neurological: Reports: No New Focal Deficit Psy/Mental Status: Reports: Alert, Normal Affect, Normal Mood *Q Meaningful Use (DIS) - VTE *Q VTE Criteria *Q: - Stroke *Q Stroke Criteria *Q: - AMI *Q AMI Criteria *Q:
--- NOTE | 2016-10-30 12:43 | ECHO ---
EXAM DATE: 10/27/16 PATIENT'S AGE: 80 The echocardiogram report can be seen in this patient's EMR (Electronic Medical Record) in the Reports section. The report has also been scanned into PACs. MONY
== END 2016-10-29 13:45 | disposition home health service (06) | DRG 689 ==
LOC: MW.ED 07:17 → MW.MS 11:53 → OBSVTOIN 10-27 10:56 → MW.MS 10-27 10:56
PROVIDERS: ADMIT Family Medicine; ATTEND Family Medicine
DX: N39.0 Urinary tract infection, site not specified (principal); J18.9 Pneumonia, unspecified organism; M25.552 Pain in left hip; R26.2 Difficulty in walking, not elsewhere classified; M25.551 Pain in right hip; M54.5 Low back pain; D50.8 Other iron deficiency anemias; R10.9 Unspecified abdominal pain; E11.9 Type 2 diabetes mellitus without complications; I10 Essential (primary) hypertension; K57.90 Diverticulosis of intestine, part unspecified, without perforation or abscess without bleeding; W06.XXXA Fall from bed, initial encounter; Y93.89 Activity, other specified; Y92.013 Bedroom of single-family (private) house as the place of occurrence of the external cause; Z79.899 Other long term (current) drug therapy; Z95.0 Presence of cardiac pacemaker; D50.9 Iron deficiency anemia, unspecified; Z88.8 Allergy status to other drugs, medicaments and biological substances
CPT/HCPCS: 36415 ×2; 71010; 72100; 72170; 72192; 74176; 80048; 80053; 81001; 82607; 82728; 82746; 82962 ×3; 83550; 83880; 84484; 85025 ×2; 85045; 85610; 88104; 93005; 96361; 96372; 96374; 96376; 97161; 99285; A9270 ×15; G0378 ×2; J1650; J1815; J2270 ×2; J7040; 71020; 71020-26; 82272; 85014; 85018; 87086; 93306; 97110-GP; 97530-GP; 99284; J0696

== ENCOUNTER 2018-11-17 15:29 | Emergency (ER) | payer MEDICARE, OTHER ==
[2018-11-17] MEDS ORDERED: Sodium Chloride 0.9% 2.5 ML Syringe FLUSH PRN (15:52)
[2018-11-17] MEDS ORDERED: cloNIDine 0.1 MG Tab PO ONE (15:52)
[2018-11-17] MEDS ORDERED: Sodium Chloride 0.9% 10 ML Syringe FLUSH PRN (15:52)
--- NOTE | 2018-11-17 15:58 | EDM.PDOC ---
ED HPI GENERAL MEDICAL PROBLEM - General Chief Complaint: Cardiovascular Problem Stated Complaint: HYPERTENSION Time Seen by Provider: 11/17/18 15:30 Source of Information: Reports: Patient History Limitations: Reports: No Limitations - History of Present Illness INITIAL COMMENTS - FREE TEXT/NARRATIVE: History of present illness: []She was at the cancer center and found to have a high blood pressure and was told to come to the ER to be evaluated. Patient denies any symptoms including chest pain, dizziness, headache, blurry vision any change in urine or edema. Review of systems: As per history of present illness and below otherwise all systems reviewed and negative. Past medical history: As per history of present illness and as reviewed below otherwise noncontributory. Surgical history: As per history of present illness and as reviewed below otherwise noncontributory. Social history: No reported history of drug or alcohol abuse. Family history: As per history of present illness and as reviewed below otherwise noncontributory. Physical exam: General: Well developed, well nourished in NAD HEENT: Atraumatic, normocephalic, pupils reactive, negative for conjunctival pallor or scleral icterus, mucous membranes moist, throat clear, neck supple, nontender, trachea midline. Lungs: Clear to auscultation, breath sounds equal bilaterally, chest nontender. Heart: S1S2, regular, negative for clicks, rubs, or JVD. Abdomen: NABS, Soft, nondistended, nontender. Negative for masses or hepatosplenomegaly. Negative for costovertebral tenderness. Pelvis: Stable nontender. Genitourinary: Deferred. Rectal: Deferred. Extremities: Atraumatic, negative for cords or calf pain. Neurovascular unremarkable. Neuro: Awake, alert, oriented. Cranial nerves II through XII unremarkable. Cerebellum unremarkable. Motor and sensory unremarkable throughout. Exam nonfocal. Skin:warm and dry Diagnostics: CBC, chemistry, cardiac monitoring clonidine ED Course: Stable Impression: Controlled hypertension Prescriptions: None Plan: Take meds as directed, follow up with your primary care physician, return to ER if symptoms worsen or change. Definitive disposition and diagnosis as appropriate pending reevaluation and review of above. - Related Data Allergies Allergy/AdvReac Type Severity Reaction Status Date / Time codeine Allergy Intermediate Rash Verified 11/17/18 15:42 celecoxib [From Celebrex] Allergy Rash Verified 11/17/18 15:42 propoxyphene [From Darvon] Allergy Rash Verified 11/17/18 15:42 Home Meds: Home Meds SitaGLIPtin [Januvia] 100 mg PO DAILY 11/24/15 [History] amLODIPine [Norvasc] 5 mg PO BEDTIME 11/24/15 [History] Ascorbic Acid [Vitamin C] 500 mg PO DAILY 03/25/16 [History] Calcium Carbonate/Vitamin D3 [Calcium 600 + Vit D Tablet] 1 tab PO DAILY [History] Metoprolol Succinate [Toprol XL] 25 mg PO DAILY 03/25/16 [History] Rosuvastatin [Crestor] 10 mg PO BEDTIME 03/25/16 [History] Fluticasone Propionate [Flonase Allergy Relief] 2 sprays NASBOTH DAILY 10/26/16 [History] Propylene Glycol/Peg 400 [Systane 0.3-0.4% Eye Drops] 1 drop EYEBOTH TID [History] Acetaminophen [Tylenol Extra Strength] 1,000 mg PO Q8H PRN #60 tablet 10/29/16 [ Rx] Cefdinir [IJD: Cefdinir] 300 mg PO BID #10 capsule 10/29/16 [Rx] Iron Polysaccharides Complex [Ferrex 150] 150 mg PO DAILY #30 cap 10/29/16 [Rx] oxyCODONE 5 mg PO Q6H PRN #15 tablet 10/29/16 [Rx] Past Medical History 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 Dermatologic History: Reports: None - Infectious Disease History Infectious Disease History: Reports: None - Past Surgical History HEENT Surgical History: Reports: Eye Surgery Other HEENT Surgeries/Procedures: Wears glasses Female Surgical History: Reports: Hysterectomy Musculoskeletal Surgical History: Reports: Knee Replacement Social & Family History - Family History Family Medical History: Noncontributory Cardiac: Reports: Hypertension, [place] GI: Reports: Other (See Below) Other GI Family History: Intestinal CA Endocrine/Metabolic: Reports: Diabetes, type II - Tobacco Use Smoking Status *Q: Never Smoker - Caffeine Use Caffeine Use: Reports: None - Recreational Drug Use Recreational Drug Use: No ED ROS GENERAL - Review of Systems Review Of Systems: See Below ED EXAM, GENERAL - Physical Exam Exam: See Below Course - Vital Signs Last Recorded V/S: Last Vital Signs Temp 96.4 F 11/17/18 15:40 Pulse 66 11/17/18 15:40 Resp 20 11/17/18 15:40 BP 205/75 H 11/17/18 16:10 Pulse Ox 93 L 11/17/18 15:40 - Orders/Labs/Meds Orders: Active Orders 24 hr Category Date Time Status CBC WITH AUTO DIFF [HEME] Stat Lab 11/17/18 16:10 Received COMPREHENSIVE METABOLIC PN,CMP [CHEM] Stat Lab 11/17/18 16:10 Received Sodium Chloride 0.9% [Saline Flush] Med 11/17/18 15:52 Active 10 ml FLUSH ASDIRECTED PRN Sodium Chloride 0.9% [Saline Flush] Med 11/17/18 15:52 Active 2.5 ml FLUSH ASDIRECTED PRN Saline Lock Insert [OM.PC] Stat Oth 11/17/18 15:52 Ordered Medication Orders Sodium Chloride (Saline Flush) 10 ml FLUSH ASDIRECTED PRN PRN Reason: Keep Vein Open Sodium Chloride (Saline Flush) 2.5 ml FLUSH ASDIRECTED PRN PRN Reason: Keep Vein Open Meds: Medications Generic Name Dose Route Start Last Admin Trade Name Freq PRN Reason Stop Dose Admin Sodium Chloride 10 ml 11/17/18 15:52 Saline Flush FLUSH ASDIRECTED PRN Keep Vein Open Sodium Chloride 2.5 ml 11/17/18 15:52 Saline Flush FLUSH ASDIRECTED PRN Keep Vein Open Discontinued Medications Generic Name Dose Route Start Last Admin Trade Name Freq PRN Reason Stop Dose Admin Clonidine HCl 0.2 mg 11/17/18 15:52 11/17/18 16:10 Catapres PO 11/17/18 15:53 0.2 mg ONETIME ONE Administration Departure - Departure Time of Disposition: 16:37 Disposition: Home, Self-Care 01 Condition: Good Clinical Impression: Uncontrolled hypertension Referrals: Cal Garcia MD [Primary Care Provider] - Forms: ED Department Discharge Additional Instructions: The following information is given to patients seen in the emergency department who are being discharged to home. This information is to outline your options for follow-up care. We provide all patients seen in our emergency department with a follow-up referral. The need for follow-up, as well as the timing and circumstances, are variable depending upon the specifics of your emergency department visit. If you don't have a primary care physician on staff, we will provide you with a referral. We always advise you to contact your personal physician following an emergency department visit to inform them of the circumstance of the visit and for follow-up with them and/or the need for any referrals to a consulting specialist. The emergency department will also refer you to a specialist when appropriate. This referral assures that you have the opportunity for follow-up care with a specialist. All of these measure are taken in an effort to provide you with optimal care, which includes your follow-up. Under all circumstances we always encourage you to contact your private physician who remains a resource for coordinating your care. When calling for follow-up care, please make the office aware that this follow-up is from your recent emergency room visit. If for any reason you are refused follow-up, please contact the [facility] Emergency Department at and asked to speak to the emergency department charge nurse. Take meds as directed, follow up with your primary care physician, return to ER if symptoms worsen or change. [facility] [address] [place] [id number] - My Orders Last 24 Hours: My Active Orders 11/17/18 15:52 Sodium Chloride 0.9% [Saline Flush] 10 ml FLUSH ASDIRECTED PRN Sodium Chloride 0.9% [Saline Flush] 2.5 ml FLUSH ASDIRECTED PRN Saline Lock Insert [OM.PC] Stat 11/17/18 16:10 CBC WITH AUTO DIFF [HEME] Stat COMPREHENSIVE METABOLIC PN,CMP [CHEM] Stat - Assessment/Plan Last 24 Hours: My Active Orders 11/17/18 15:52 Sodium Chloride 0.9% [Saline Flush] 10 ml FLUSH ASDIRECTED PRN Sodium Chloride 0.9% [Saline Flush] 2.5 ml FLUSH ASDIRECTED PRN Saline Lock Insert [OM.PC] Stat 11/17/18 16:10 CBC WITH AUTO DIFF [HEME] Stat COMPREHENSIVE METABOLIC PN,CMP [CHEM] Stat
[2018-11-17 16:52] LABS: CARBON DIOXIDE,CO2 25.9 mmol/L (21.0-32.0); POTASSIUM,K 4.1 mmol/L (3.5-5.1)
[2018-11-17 17:40] VITALS: BP 143/64; PULSE 60
== END 2018-11-17 17:27 | disposition home or self-care (01) ==
LOC: MW.ED 15:29
DX: I10 Essential (primary) hypertension (principal); C76.3 Malignant neoplasm of pelvis; C76.1 Malignant neoplasm of thorax; E11.9 Type 2 diabetes mellitus without complications; Z88.5 Allergy status to narcotic agent; Z88.8 Allergy status to other drugs, medicaments and biological substances; Z79.899 Other long term (current) drug therapy
CPT/HCPCS: 80053; 85025; 99283; A9270

== ENCOUNTER 2019-03-25 07:44 | Emergency (ER) | payer MEDICARE, OTHER ==
[2019-03-25 09:14] LABS: CARBON DIOXIDE,CO2 26.1 mmol/L (21.0-32.0)
--- NOTE | 2019-03-25 09:37 | CT ---
CT abdomen and pelvis Technique: Multiple axial sections were obtained from above the dome of the diaphragm inferiorly through the pubic symphysis. Intravenous and oral contrast was not utilized. Study has been performed as a ureteral stone protocol. Comparison: Previous CT abdomen and pelvis exams of 11/08/18 and 05/06/17. Findings: Visualized lung bases show nothing acute. Noncontrast appearance of the liver shows no discrete abnormality. Spleen appears within normal limits. Adrenal glands show no nodule. Pancreas is within normal limits. Gallbladder shows several small areas of increased density most likely representing small gallstones. This finding is not definitely appreciated on the previous exam. Aorta shows atherosclerotic calcification which continues into the iliac vessels. No aneurysm is identified. No retroperitoneal adenopathy or mesenteric abnormalities are seen. No pelvic mass or adenopathy is noted. Mild increased stool within the colon is seen which includes the rectum. Diverticuli are seen within the sigmoid colon with no inflammatory change of diverticulitis. Several metallic densities are seen within the lower pelvis most likely due to surgical clips. Kidneys show no abnormal calcifications. No ureteral dilatation is seen. No ureteral calcifications are seen. No bowel dilatation is seen. Appendix is felt to be seen and is normal in size. Bone window settings were reviewed which shows stable focal areas of lucency within the L2 and L5 vertebral bodies. Scattered degenerative change is also noted within the spine. No acute osseous finding is seen. Impression: 1. Mild increased stool within the colon which includes the rectum. 2. Other findings believed to be stable and therefore incidental. 3. No renal calculi, ureteral dilatation or ureteral stone is seen. 4. Nothing acute is appreciated on noncontrast CT study of the abdomen and pelvis performed as a ureteral stone protocol. Diagnostic code #2 This report was dictated in [place] Standard Time
[2019-03-25] MEDS ORDERED: Cephalexin 500 MG Cap PO ONE (09:50)
--- NOTE | 2019-03-25 09:51 | EDM.PDOC ---
ED [facility] GENERAL MEDICAL PROBLEM - General Chief Complaint: Flank Pain Stated Complaint: BACK PAIN RADIATING TO THE FRONT Time Seen by Provider: 03/25/19 09:00 Source of Information: Reports: Patient History Limitations: Reports: No Limitations - History of Present Illness INITIAL COMMENTS - FREE TEXT/NARRATIVE: Patient is an 83-year-old female with a past medical history of cancer but not on any active chemo. Patient has been cancer free for 3 years. Patient reports 2-day history of left flank pain. Patient states the flank pain is constant and radiates to the left groin. Patient reports associated dysuria but no hematuria. Denies fevers, chills, nausea, vomiting. Reports history of similar prior symptoms related to urinary tract infection. Denies history of kidney stones. In addition to that documented in the HPI above, the additional ROS was obtained : Constitutional: Denies fevers or chills Eyes: Denies vision changes ENMT: Denies sore throat CV: Denies chest pain Resp: Denies SOB GI: Denies vomiting or diarrhea : Per HPI MSK: Positive back pain Skin: Denies new rashes Neuro: Denies new numbness or tingling or weakness Endocrine: Denies unexpected weight loss Heme: Denies bleeding disorders I have reviewed the triage vital signs Const: Well nourished, well developed, appears stated age Eyes: PERRL, no conjunctival injection HENT: NCAT, Neck supple without meningismus CV: RRR, Warm, well-perfused extremities RESP: CTAB, Unlabored respiratory effort GI: soft, non-tender, non-distended, no masses MSK: No gross deformities appreciated Skin: Warm, dry. No rashes Neuro: Alert, test rider II-XII grossly intact. Sensation and motor function of extremities grossly intact. Psych: Appropriate mood and affect Assessment and plan: Patient is an 83-year-old female presenting with dysuria and flank pain. Patient has normal vital signs and appears well. Laboratory studies do not demonstrate any evidence of systemic infection and CT scan was done to rule out any coexisting kidney stone. Patient's urinalysis consistent with urinary tract infection. Given patient's exam and lack of evidence for systemic symptoms and systemic infection, patient will be treated as an outpatient with antibiotics. left flank Pain Score (Numeric/FACES): 9 - Related Data Allergies Allergy/AdvReac Type Severity Reaction Status Date / Time codeine Allergy Intermediate Rash Verified 11/17/18 15:42 celecoxib [From Celebrex] Allergy Rash Verified 11/17/18 15:42 morphine Allergy Vomiting Verified 03/25/19 08:01 propoxyphene [From Darvon] Allergy Rash Verified 11/17/18 15:42 Home Meds: Home Meds Ascorbic Acid [Vitamin C] 1 tab PO DAILY 03/25/19 [History] Calcium Carbonate/Vitamin D3 [Calcium 600 + Vit D Tablet] 1 each PO DAILY [History] Fluticasone Propionate [Flovent Hfa] 12 gm IH DAILY 03/25/19 [History] Losartan Potassium 100 mg PO DAILY 03/25/19 [History] Metoprolol Succinate 25 mg PO DAILY 03/25/19 [History] SitaGLIPtin [Januvia] 50 mg PO DAILY 03/25/19 [History] atorvaSTATin [Lipitor] 20 mg PO BEDTIME 03/25/19 [History] cephALEXin [Keflex] 250 mg PO Q6H 7 Days #28 cap 03/25/19 [Rx] Past Medical History Cardiovascular History: Reports: Hypertension, Pacemaker Respiratory History: Reports: Pneumonia, Recurrent Other Respiratory History: Hx of pneumonia Gastrointestinal History: Reports: None Neurological History: Reports: None Psychiatric History: Reports: None Endocrine/Metabolic History: Reports: Diabetes, Type II Hematologic History: Reports: None Oncologic (Cancer) History: Reports: Ovarian, Uterine Other Oncologic History: as stated by the pt she has ca of the " pelvis, groin and chest" and she was ca free for 3 years now and that she is following up with her oncology dr. Dermatologic History: Reports: None - Infectious Disease History Infectious Disease History: Reports: Chicken Pox, Measles, Shingles - Past Surgical History HEENT Surgical History: Reports: Eye Surgery Other HEENT Surgeries/Procedures: Wears glasses Female Surgical History: Reports: Hysterectomy Musculoskeletal Surgical History: Reports: Knee Replacement Social & Family History - Family History Family Medical History: Noncontributory Cardiac: Reports: Hypertension, [place] GI: Reports: Other (See Below) Other GI Family History: Intestinal CA Endocrine/Metabolic: Reports: Diabetes, type II - Tobacco Use Smoking Status *Q: Never Smoker - Caffeine Use Caffeine Use: Reports: None - Recreational Drug Use Recreational Drug Use: No ED ROS GENERAL - Review of Systems Review Of Systems: See Below ED EXAM, RENAL/ - Physical Exam Exam: See Below Course - Vital Signs Last Recorded V/S: Last Vital Signs Temp 36.1 C 03/25/19 10:32 Pulse 65 03/25/19 10:32 Resp 18 03/25/19 10:32 BP 174/58 H 03/25/19 10:32 Pulse Ox 94 L 03/25/19 10:32 - Orders/Labs/Meds Orders: Active Orders 24 hr Category Date Time Status CULTURE URINE [RM] Stat Lab 03/25/19 09:22 Received Labs: Laboratory Tests 03/25/19 03/25/19 03/25/19 Range/Units 08:40 08:40 09:22 WBC 7.13 (4.0-11.0) K/uL RBC 3.79 L (4.30-5.90) M/uL Hgb 12.3 (12.0-16.0) g/dL Hct 36.0 (36.0-46.0) % MCV 95.0 (80.0-98.0) fL MCH 32.5 H (27.0-32.0) pg MCHC 34.2 (31.0-37.0) g/dL RDW Std Deviation 48.1 (28.0-62.0) fl RDW Coeff of Shell 14 (11.0-15.0) % Plt Count 157 (150-400) K/uL MPV 10.80 (7.40-12.00) fL Neut % (Auto) 82.9 H (48.0-80.0) % Lymph % (Auto) 9.3 L (16.0-40.0) % [place] % (Auto) 4.9 (0.0-15.0) % Eos % (Auto) 2.5 (0.0-7.0) % Baso % (Auto) 0.4 (0.0-1.5) % Neut # (Auto) 5.9 H (1.4-5.7) K/uL Lymph # (Auto) 0.7 (0.6-2.4) K/uL [place] # (Auto) 0.4 (0.0-0.8) K/uL Eos # (Auto) 0.2 (0.0-0.7) K/uL Baso # (Auto) 0.0 (0.0-0.1) K/uL Nucleated RBC % 0.0 /100WBC Nucleated RBCs # 0 K/uL Sodium 141 (136-145) mmol/L Potassium 4.0 (3.5-5.1) mmol/L Chloride 102 (98-107) mmol/L Carbon Dioxide 26.1 (21.0-32.0) mmol/L BUN 21 H (7.0-18.0) mg/dL Creatinine 1.2 H (0.6-1.0) mg/dL Est Cr Clr Drug Dosing 30.84 mL/min Estimated GFR (MDRD) 42.7 ml/min Glucose 217 H (74-106) mg/dL Calcium 9.7 (8.5-10.1) mg/dL Total Bilirubin 0.8 (0.2-1.0) mg/dL AST 13 L (15-37) IU/L ALT 20 (14-63) IU/L Alkaline Phosphatase 114 (46-116) U/L Total Protein 7.2 (6.4-8.2) g/dL Albumin 3.9 (3.4-5.0) g/dL Globulin 3.3 (2.6-4.0) g/dL Albumin/Globulin Ratio 1.2 (0.9-1.6) Urine Color YELLOW Urine Appearance SLT CLOUDY Urine pH 7.5 (5.0-8.0) Ur Specific [place] 1.015 (1.001-1.035) Urine Protein NEGATIVE (NEGATIVE) mg/dL Urine Glucose (UA) NEGATIVE (NEGATIVE) mg/dL Urine Ketones NEGATIVE (NEGATIVE) mg/dL Urine Occult Blood NEGATIVE (NEGATIVE) Urine Nitrite POSITIVE H (NEGATIVE) Urine Bilirubin NEGATIVE (NEGATIVE) Urine Urobilinogen 0.2 (<2.0) EU/dL Ur Leukocyte Esterase NEGATIVE (NEGATIVE) Urine RBC 0-1 (0-2/HPF) Urine WBC 1-2 (0-5/HPF) Ur Epithelial Cells OCCASIONAL (NONE-FEW) Urine Bacteria 1+ H (NEGATIVE) Urinalysis Comment Meds: Medications Discontinued Medications Generic Name Dose Route Start Last Admin Trade Name Freq PRN Reason Stop Dose Admin Cephalexin 500 mg 03/25/19 09:50 03/25/19 10:15 Keflex PO 03/25/19 09:51 500 mg ONETIME ONE Administration Departure - Departure Time of Disposition: 09:51 Disposition: Home, Self-Care Clinical Impression: UTI, Urinary tract infectious disease - Discharge Information Prescriptions: cephALEXin [Keflex] 250 mg PO Q6H 7 Days #28 cap Instructions: Urinary Tract Infection, Adult, [id number] Referrals: Cal Garcia MD [Primary Care Provider] - Forms: ED Department Discharge Additional Instructions: The following information is given to patients seen in the emergency department who are being discharged to home. This information is to outline your options for follow-up care. We provide all patients seen in our emergency department with a follow-up referral. The need for follow-up, as well as the timing and circumstances, are variable depending upon the specifics of your emergency department visit. If you don't have a primary care physician on staff, we will provide you with a referral. We always advise you to contact your personal physician following an emergency department visit to inform them of the circumstance of the visit and for follow-up with them and/or the need for any referrals to a consulting specialist. The emergency department will also refer you to a specialist when appropriate. This referral assures that you have the opportunity for follow-up care with a specialist. All of these measure are taken in an effort to provide you with optimal care, which includes your follow-up. Under all circumstances we always encourage you to contact your private physician who remains a resource for coordinating your care. When calling for follow-up care, please make the office aware that this follow-up is from your recent emergency room visit. If for any reason you are refused follow-up, please contact the [facility] Emergency Department at and asked to speak to the emergency department charge nurse. Sepsis Event Note - Evaluation Sepsis Screening Result: No Definite Risk - Focused Exam Date Exam was Performed: 03/26/19 Time Exam was Performed: 07:33 - My Orders Last 24 Hours: My Active Orders 03/25/19 09:22 CULTURE URINE [RM] Stat - Assessment/Plan Last 24 Hours: My Active Orders 03/25/19 09:22 CULTURE URINE [RM] Stat
[2019-03-25 10:32] VITALS: BP 174/58; PULSE 65
== END 2019-03-25 10:16 | disposition home or self-care (01) ==
LOC: MW.ED 07:44
DX: N39.0 Urinary tract infection, site not specified (principal); I10 Essential (primary) hypertension; E11.9 Type 2 diabetes mellitus without complications; Z90.710 Acquired absence of both cervix and uterus; Z79.899 Other long term (current) drug therapy; Z88.5 Allergy status to narcotic agent
CPT/HCPCS: 36415; 74176; 80053; 81001; 85025; 87086; 87088; 87186; 99284; A9270

== ENCOUNTER 2020-01-26 11:45 | Emergency (ER) | payer MEDICARE, OTHER ==
--- NOTE | 2020-01-26 12:03 | EDM.PDOC ---
ED HPI GENERAL MEDICAL PROBLEM - General Chief Complaint: Cardiovascular Problem Stated Complaint: AMBULANCE Time Seen by Provider: 01/26/20 11:50 Source of Information: Reports: Patient History Limitations: Reports: No Limitations - History of Present Illness INITIAL COMMENTS - FREE TEXT/NARRATIVE: Is 84-year-old female who was sent in to have elevated blood pressure. Patient she is going for routine follow-up and was found to have a blood pressure systolic greater than 200. Patient denies any symptoms that she did have a slight headache earlier this morning but currently has no pain no confusion no chest pain no urinary symptoms. Patient does have history of high blood pressure and took her meds morning per the patient. headache Pain Score (Numeric/FACES): 2 - Related Data Allergies Allergy/AdvReac Type Severity Reaction Status Date / Time codeine Allergy Intermediate Rash Verified 11/17/18 15:42 celecoxib [From Celebrex] Allergy Rash Verified 11/17/18 15:42 morphine Allergy Vomiting Verified 03/25/19 08:01 propoxyphene [From Darvon] Allergy Rash Verified 11/17/18 15:42 Home Meds: Home Meds Metoprolol Succinate 25 mg PO DAILY 03/25/19 [History] SitaGLIPtin [Januvia] 50 mg PO DAILY 03/25/19 [History] atorvaSTATin [Lipitor] 20 mg PO BEDTIME 03/25/19 [History] Furosemide [Lasix] 40 mg PO DAILY 01/26/20 [History] Olmesartan Medoxomil [Benicar] 40 mg PO DAILY 01/26/20 [History] Past Medical History Cardiovascular History: Reports: Hypertension, Pacemaker Respiratory History: Reports: Pneumonia, Recurrent Other Respiratory History: Hx of pneumonia Gastrointestinal History: Reports: None Neurological History: Reports: None Psychiatric History: Reports: None Endocrine/Metabolic History: Reports: Diabetes, Type II Hematologic History: Reports: None Oncologic (Cancer) History: Reports: Ovarian, Uterine Other Oncologic History: as stated by the pt she has ca of the " pelvis, groin and chest" and she was ca free for 3 years now and that she is following up with her oncology dr. Dermatologic History: Reports: None - Infectious Disease History Infectious Disease History: Reports: Chicken Pox, Measles, Shingles - Past Surgical History HEENT Surgical History: Reports: Eye Surgery Other HEENT Surgeries/Procedures: Wears glasses Female Surgical History: Reports: Hysterectomy Musculoskeletal Surgical History: Reports: Knee Replacement Social & Family History - Family History Family Medical History: No Pertinent Family History Cardiac: Reports: Hypertension, MO GI: Reports: Other (See Below) Other GI Family History: Intestinal CA Endocrine/Metabolic: Reports: Diabetes, type II - Caffeine Use Caffeine Use: Reports: None ED ROS GENERAL - Review of Systems Review Of Systems: See Below Constitutional: Reports: No Symptoms HEENT: Reports: No Symptoms Respiratory: Reports: No Symptoms Cardiovascular: Reports: No Symptoms Endocrine: Reports: No Symptoms GI/Abdominal: Reports: No Symptoms : Reports: No Symptoms Musculoskeletal: Reports: No Symptoms Skin: Reports: No Symptoms Neurological: Reports: No Symptoms Psychiatric: Reports: No Symptoms Hematologic/Lymphatic: Reports: No Symptoms Immunologic: Reports: No Symptoms ED EXAM, GENERAL - Physical Exam Exam: See Below Exam Limited By: No Limitations General Appearance: Alert, No Apparent Distress Eye Exam: Bilateral Eye: EOMI, PERRL Ears: Normal External Exam Respiratory/Chest: No Respiratory Distress, Lungs Clear, Normal Breath Sounds Cardiovascular: Normal Peripheral Pulses, Regular Rate, Rhythm GI/Abdominal: Normal Bowel Sounds, Soft, Non-Tender Back Exam: Normal Inspection, Full Range of Motion Extremities: Normal Inspection, Normal Range of Motion, Non-Tender Neurological: Alert, Oriented, CN II-XII Intact, Normal Cognition, Normal Gait #1 Interpretation EKG Date: 01/26/20 Time: 14:00 Rhythm: Other (atrail paced) Rate (Beats/Min): 60 ST-T: Normal Course - Vital Signs Last Recorded V/S: Last Vital Signs Temp 97 F 01/26/20 11:50 Pulse 60 01/26/20 13:45 Resp 17 01/26/20 13:45 BP 190/70 H 01/26/20 13:45 Pulse Ox 95 01/26/20 13:45 - Orders/Labs/Meds Orders: Active Orders 24 hr Category Date Time Status EKG 12 Lead [EKG Documentation Completion] [RC] STAT Care 01/26/20 13:52 Active Labs: Laboratory Tests 01/26/20 01/26/20 01/26/20 Range/Units 12:38 12:38 13:05 WBC 8.16 (4.0-11.0) K/uL RBC 3.85 L (4.30-5.90) M/uL Hgb 12.1 (12.0-16.0) g/dL Hct 36.9 (36.0-46.0) % MCV 95.8 (80.0-98.0) fL MCH 31.4 (27.0-32.0) pg MCHC 32.8 (31.0-37.0) g/dL RDW Std Deviation 47.2 (28.0-62.0) fl RDW Coeff of Shell 14 (11.0-15.0) % Plt Count 148 L (150-400) K/uL MPV 10.40 (7.40-12.00) fL Neut % (Auto) 81.1 H (48.0-80.0) % Lymph % (Auto) 9.7 L (16.0-40.0) % Beadle % (Auto) 6.6 (0.0-15.0) % Eos % (Auto) 2.5 (0.0-7.0) % Baso % (Auto) 0.1 (0.0-1.5) % Neut # (Auto) 6.6 H (1.4-5.7) K/uL Lymph # (Auto) 0.8 (0.6-2.4) K/uL Beadle # (Auto) 0.5 (0.0-0.8) K/uL Eos # (Auto) 0.2 (0.0-0.7) K/uL Baso # (Auto) 0.0 (0.0-0.1) K/uL Nucleated RBC % 0.0 /100WBC Nucleated RBCs # 0 K/uL Sodium 141 (136-145) mmol/L Potassium 4.2 (3.5-5.1) mmol/L Chloride 104 (98-107) mmol/L Carbon Dioxide 26.9 (21.0-32.0) mmol/L BUN 26 H (7.0-18.0) mg/dL Creatinine 1.1 H (0.6-1.0) mg/dL Est Cr Clr Drug Dosing 30.37 mL/min Estimated GFR (MDRD) 47.1 ml/min Glucose 182 H (74-106) mg/dL Calcium 9.5 (8.5-10.1) mg/dL Troponin I < 0.050 (0.000-0.056) ng/mL Departure - Departure Time of Disposition: 14:00 Disposition: Home, Self-Care 01 Condition: Good Clinical Impression: Asymptomatic hypertension Instructions: Hypertension, Adult, [id number] Referrals: Cal Garcia MD [Primary Care Provider] - Forms: ED Department Discharge Additional Instructions: The following information is given to patients seen in the emergency department who are being discharged to home. This information is to outline your options for follow-up care. We provide all patients seen in our emergency department with a follow-up referral. The need for follow-up, as well as the timing and circumstances, are variable depending upon the specifics of your emergency department visit. If you don't have a primary care physician on staff, we will provide you with a referral. We always advise you to contact your personal physician following an emergency department visit to inform them of the circumstance of the visit and for follow-up with them and/or the need for any referrals to a consulting specialist. The emergency department will also refer you to a specialist when appropriate. This referral assures that you have the opportunity for follow-up care with a specialist. All of these measure are taken in an effort to provide you with optimal care, which includes your follow-up. Under all circumstances we always encourage you to contact your private physician who remains a resource for coordinating your care. When calling for follow-up care, please make the office aware that this follow-up is from your recent emergency room visit. If for any reason you are refused follow-up, please contact the [facility] Emergency Department at and asked to speak to the emergency department charge nurse. Please follow up with your primary care physician. If you do not have a primary care physician, see below: [facility] [address] [place] [id number] [facility] [address] [place] [id number] [facility] primary care physician as needed. Your blood pressure slightly elevated but you remained to be asymptomatic. If you develop any confusion headaches chest pain or difficulty urinating please return to the ED. Otherwise call your PMD as you may need adjustments to your blood pressure medication. Sepsis Event Note (ED) - Focused Exam Vital Signs: Vital Signs Temp Pulse Resp BP Pulse Ox 01/26/20 13:45 60 17 190/70 H 95 01/26/20 13:15 60 18 199/71 H 96 01/26/20 13:00 70 18 211/68 H 96 01/26/20 11:50 97 F 60 18 135/98 H 96 - My Orders Last 24 Hours: My Active Orders 01/26/20 13:52 EKG 12 Lead [EKG Documentation Completion] [RC] STAT - Assessment/Plan Last 24 Hours: My Active Orders 01/26/20 13:52 EKG 12 Lead [EKG Documentation Completion] [RC] STAT Plan: Is a 84-year-old female who symptoms have elevated blood pressure. Patient is asymptomatic. Will get basic labs observe and likely discharge home.
[2020-01-26 13:06] LABS: CARBON DIOXIDE,CO2 26.9 mmol/L (21.0-32.0); POTASSIUM,K 4.2 mmol/L (3.5-5.1)
[2020-01-26 14:38] VITALS: BP 199/66; PULSE 65
== END 2020-01-26 14:40 | disposition home or self-care (01) ==
LOC: MW.ED 11:45
DX: I10 Essential (primary) hypertension (principal); E11.9 Type 2 diabetes mellitus without complications; Z95.0 Presence of cardiac pacemaker; Z88.5 Allergy status to narcotic agent; Z88.6 Allergy status to analgesic agent; Z79.899 Other long term (current) drug therapy
CPT/HCPCS: 36415; 80048; 84484; 85025; 93005; 93010; 99284; 99284-25

== ENCOUNTER 2023-10-27 16:56 | Inpatient (IN) | payer MEDICARE, OTHER ==
[2023-10-27 17:56] LABS: BASOPHILS ABSOLUTE AUTO 0.03 K/uL (0.00-0.20); BASOPHILS PERCENT AUTO 0.4 % (0.0-1.0); EOSINOPHILS ABSOLUTE AUTO 0.09 K/uL (0.00-0.45); EOSINOPHILS PERCENT AUTO 1.1 % (0.0-6.0); HEMATOCRIT 32.2 % (37.0-47.0); HEMOGLOBIN 10.9 g/dL (12.0-16.0); IMMATURE GRAN ABSOLUTE AUTO 0.03 K/uL (0.00-0.05); IMMATURE GRAN PERCENT AUTO 0.4 % (0.0-0.4); LYMPHOCYTES ABSOLUTE AUTO 0.42 K/uL (1.00-4.80); MEAN CORPUSCULAR HEMOGLOBIN 31.8 pg (28.0-32.0); MEAN CORPUSCULAR HGB CONC 33.9 g/dL (32.0-36.0); MEAN CORPUSCULAR VOLUME 93.9 fL (83.0-99.0); MEAN PLATELET VOLUME 10.3 fL (9.4-12.3); MONOCYTES ABSOLUTE AUTO 0.45 K/uL (0.00-0.80); MONOCYTES PERCENT AUTO 5.4 % (0.0-8.0); NEUTROPHILS ABSOLUTE AUTO 7.38 K/uL (1.80-7.70); NEUTROPHILS PERCENT AUTO 87.7 % (41.0-71.0); PLATELET COUNT,PLT 151 K/uL (150-400); RED BLOOD CELL COUNT 3.43 M/uL (4.10-5.30)
[2023-10-27 18:29] LABS: A/G RATIO 1.1 (0.9-1.6); ALBUMIN 3.7 g/dL (3.4-5.0); BILIRUBIN TOTAL 0.7 mg/dL (0.2-1.0); CALCIUM 9.8 mg/dL (8.5-10.1); CARBON DIOXIDE,CO2 31.2 mmol/L (21.0-32.0); CREATININE 1.4 mg/dL (0.6-1.0); EST CRCL DRUG DOSING (CG) 27.48 mL/min; POTASSIUM,K 4.1 mmol/L (3.5-5.1); PROTEIN TOTAL,TP 7.2 g/dL (6.4-8.2); T4 FREE 1.11 ng/dL (0.76-1.46)
[2023-10-27] MEDS: Sodium Chloride 0.9% 10 ML Syringe FLUSH PRN (18:57)
[2023-10-27] MEDS: Sodium Chloride 0.9% 500 ML IV SCH (18:57)
[2023-10-27] MEDS: Sodium Chloride 0.9% 2.5 ML Syringe FLUSH PRN (18:57)
[2023-10-28] MEDS ORDERED: Glucagon,Human Recombinant 1 MG Vial IM PRN (01:07)
[2023-10-28] MEDS ORDERED: 50% Dextrose in Water 50 ML Syringe IVPUSH PRN (01:07)
[2023-10-28 05:41] LABS: BASOPHILS ABSOLUTE AUTO 0.03 K/uL (0.00-0.20); BASOPHILS PERCENT AUTO 0.4 % (0.0-1.0); EOSINOPHILS ABSOLUTE AUTO 0.05 K/uL (0.00-0.45); EOSINOPHILS PERCENT AUTO 0.6 % (0.0-6.0); HEMATOCRIT 29.6 % (37.0-47.0); HEMOGLOBIN 10.1 g/dL (12.0-16.0); IMMATURE GRAN ABSOLUTE AUTO 0.03 K/uL (0.00-0.05); IMMATURE GRAN PERCENT AUTO 0.4 % (0.0-0.4); LYMPHOCYTES ABSOLUTE AUTO 0.59 K/uL (1.00-4.80); LYMPHOCYTES PERCENT AUTO 7.4 % (24.0-44.0); MEAN CORPUSCULAR HEMOGLOBIN 31.6 pg (28.0-32.0); MEAN CORPUSCULAR HGB CONC 34.1 g/dL (32.0-36.0); MEAN CORPUSCULAR VOLUME 92.5 fL (83.0-99.0); MEAN PLATELET VOLUME 10.8 fL (9.4-12.3); MONOCYTES ABSOLUTE AUTO 0.55 K/uL (0.00-0.80); MONOCYTES PERCENT AUTO 6.9 % (0.0-8.0); NEUTROPHILS ABSOLUTE AUTO 6.68 K/uL (1.80-7.70); NEUTROPHILS PERCENT AUTO 84.3 % (41.0-71.0); PLATELET COUNT,PLT 154 K/uL (150-400); WHITE BLOOD CELL COUNT,WBC 7.93 K/uL (3.9-11.3)
[2023-10-28 06:12] LABS: A/G RATIO 1.1 (0.9-1.6); ALBUMIN 3.4 g/dL (3.4-5.0); BILIRUBIN TOTAL 0.8 mg/dL (0.2-1.0); CALCIUM 9.5 mg/dL (8.5-10.1); CARBON DIOXIDE,CO2 30.9 mmol/L (21.0-32.0); CREATININE 1.2 mg/dL (0.6-1.0); EST CRCL DRUG DOSING (CG) 32.06 mL/min; POTASSIUM,K 3.8 mmol/L (3.5-5.1); PROTEIN TOTAL,TP 6.4 g/dL (6.4-8.2)
[2023-10-28] MEDS: Insulin Aspart 100 Units/ML 3 ML Pen SUBCUT SCH (07:48)
[2023-10-28] MEDS: Lidocaine 1% 20 ML MDV INJECT ONE (11:09)
[2023-10-28] MEDS: Aspirin 81 MG Tab.Chew PO SCH (11:59)
[2023-10-28] MEDS: Clopidogrel 75 MG Tab PO SCH (11:59)
[2023-10-28] MEDS: Rosuvastatin 10 MG Tab PO SCH (12:17)
[2023-10-28] MEDS ORDERED: Iopamidol 755 MG/ML 500 ML Multipack Bottle IVPUSH STA (14:38)
[2023-10-28] MEDS: Iopamidol 755 MG/ML 500 ML Multipack Bottle IVPUSH STA (14:40)
[2023-10-29 05:30] LABS: BASOPHILS ABSOLUTE AUTO 0.02 K/uL (0.00-0.20); BASOPHILS PERCENT AUTO 0.3 % (0.0-1.0); HEMATOCRIT 30.7 % (37.0-47.0); HEMOGLOBIN 10.5 g/dL (12.0-16.0); IMMATURE GRAN ABSOLUTE AUTO 0.02 K/uL (0.00-0.05); IMMATURE GRAN PERCENT AUTO 0.3 % (0.0-0.4); LYMPHOCYTES PERCENT AUTO 10.5 % (24.0-44.0); MEAN CORPUSCULAR HEMOGLOBIN 31.7 pg (28.0-32.0); MEAN CORPUSCULAR HGB CONC 34.2 g/dL (32.0-36.0); MEAN CORPUSCULAR VOLUME 92.7 fL (83.0-99.0); MEAN PLATELET VOLUME 10.4 fL (9.4-12.3); MONOCYTES ABSOLUTE AUTO 0.53 K/uL (0.00-0.80); NEUTROPHILS ABSOLUTE AUTO 5.18 K/uL (1.80-7.70); NEUTROPHILS PERCENT AUTO 77.9 % (41.0-71.0); PLATELET COUNT,PLT 150 K/uL (150-400); RED BLOOD CELL COUNT 3.31 M/uL (4.10-5.30); WHITE BLOOD CELL COUNT,WBC 6.65 K/uL (3.9-11.3)
[2023-10-29 06:03] LABS: A/G RATIO 1.1 (0.9-1.6); ALBUMIN 3.3 g/dL (3.4-5.0); BILIRUBIN TOTAL 0.8 mg/dL (0.2-1.0); CALCIUM 9.3 mg/dL (8.5-10.1); CARBON DIOXIDE,CO2 29.2 mmol/L (21.0-32.0); CREATININE 1.1 mg/dL (0.6-1.0); EST CRCL DRUG DOSING (CG) 34.97 mL/min; POTASSIUM,K 3.7 mmol/L (3.5-5.1); PROTEIN TOTAL,TP 6.4 g/dL (6.4-8.2)
[2023-10-29] MEDS: Hydrochlorothiazide 12.5 MG Cap PO SCH (14:11)
[2023-10-29] MEDS: Metoprolol Succinate 50 MG Tab.ER PO SCH (14:11)
[2023-10-29] MEDS: OLMESARTAN 20 MG PO SCH (14:12)
[2023-10-29 16:38] VITALS: BP 164/65; PULSE 66
== END 2023-10-29 17:00 | disposition home health service (06) | DRG 312 ==
LOC: MW.ED 16:56 → MW.MS 23:43 → OBSVTOIN 10-28 12:03
PROVIDERS: ADMIT Internal Medicine; ATTEND Internal Medicine
DX: R42 Dizziness and giddiness (principal); I95.2 Hypotension due to drugs; T46.5X5A Adverse effect of other antihypertensive drugs, initial encounter; I10 Essential (primary) hypertension; Z66 Do not resuscitate; E11.9 Type 2 diabetes mellitus without complications; D64.9 Anemia, unspecified; R26.2 Difficulty in walking, not elsewhere classified; Z88.8 Allergy status to other drugs, medicaments and biological substances; Z88.6 Allergy status to analgesic agent; Z88.5 Allergy status to narcotic agent; Z88.1 Allergy status to other antibiotic agents; Z95.0 Presence of cardiac pacemaker; Z87.01 Personal history of pneumonia (recurrent); Z79.84 Long term (current) use of oral hypoglycemic drugs; Z79.899 Other long term (current) drug therapy; Z90.710 Acquired absence of both cervix and uterus; Z96.659 Presence of unspecified artificial knee joint; Z98.890 Other specified postprocedural states
CPT/HCPCS: 36415 ×2; 70450; 71045; 80053 ×2; 82947 ×2; 83690; 84439; 84484; 85025 ×2; 93005; 93306; 96360; 99285; A9270 ×2; J3490; J7040; 70496; 70496-26; 70498; 70498-26; 80061; 93010; 97162-GP; 99284; G0378; Q9967